=== PATIENT | male | born 1935 | race Caucasian/White ===

== ENCOUNTER 2017-01-10 13:44 | Inpatient (IN) | payer BC, OTHER ==
[~2017-01-10] VITALS: Ht 177.8 cm; Wt 93.6 kg
[~2017-01-10 13:44] MED LIST: ATOR-26 PO; CALC500C70 PO; CARB25TA12 PO; CLOP1TAB15 PO; CYAN100048 SL; EZET10TA63 PO; HYDR12.55 PO; LISI40TA PO; METO1TAB69 PO; METO50TA7 PO; POLY335019 PO; SERT50TA PO; ZNTT/150 PO
[2017-01-10 14:38] LABS: HEMATOCRIT 40.9 % (42-52); MEAN CELL VOLUME 95.1 fL (80-100); MEAN CORPUSCULAR HEMOGLOBIN 33.3 pg (25-34); MEAN PLATELET VOLUME 9.3 fL (7.4-10.4); PLATELET COUNT 201 K/uL (130-400); WHITE BLOOD COUNT 24.47 K/uL (4.8-10.8)
[2017-01-10 14:49] LABS: INR 1.2 (0.9-1.1); PARTIAL THROMBOPLASTIN RATIO 0.9
[2017-01-10] MEDS ORDERED: SODIUM CHLORIDE 0.9% 500ML 500 ML IV STA (14:58)
--- NOTE | 2017-01-10 14:59 | EMERGENCY ROOM VISIT NOTE ---
History Report prepared by Meg: Raymundo Smith Under the Supervision of: Dr. Roger Smith M.D. First contact with patient: 14:45 Chief Complaint: VOMITING Stated Complaint: ABDOMINAL PAIN Nursing Triage Summary: Emesis X 1, described as blakc and tarry, ? change in mental status this AM, resolved on arrival, and adominal pain last evening. History of Present Illness The patient is an 81 year old male who presents to the Emergency Room with complaints of resolving abdominal pain that started around 1800 last evening. Per the patient's , the patient was confused earlier this morning but has since gone back to normal. The patient's does not know if the patient passed out. She also notes that that patient vomited around 1200 today upon waking. Currently, the patient says he has the pain but it is not as bad. Before 1800 last evening, he says he was feeling good. Nobody else is sick around him at home. The patient has not had any abdominal surgeries. He has no history of kidney problems. Source of History: patient, spouse/significant other Onset: 1800 last evening Position: abdomen Timing: other (resolving) Associated Symptoms: + vomiting Note: Associated symptoms: Confused earlier today. Review of Systems See HPI for pertinent positives & negatives. A total of 10 systems reviewed and were otherwise negative. Past Medical & Surgical Medical Problems: (1) Asthma (2) Benign Hypertension (3) Brain aneurysm (4) Heart disease (5) HTN (hypertension) (6) Hypertension Nos (7) Migraine (8) Pneumonia of both lower lobes (9) Pure Hypercholesterolem (10) TIA (transient ischemic attack) (11) TIA (transient ischemic attack) (12) Urinary Frequency Surgical Problems: (1) H/O heart artery stent Family History Diabetes mellitus Heart disease Hypertension Social History Smoking Status: Never Smoker Marital Status: Housing Status: lives with significant other Occupation Status: retired Current/Historical Medications Scheduled Atorvastatin (Lipitor), 80 MG PO QPM Calcium/Vitamin D (Os-Bry 500 Plus D), 1 TAB PO DAILY AT 1200 Carbidopa/Levodopa (Sinemet 25MG/100MG), 2 TAB PO AC Clopidogrel (Plavix), 75 MG PO HS Cyanocobalamin (B12), 1,000 MCG PO DAILY Ezetimibe (Zetia), 10 MG PO QAM Hydrochlorothiazide (Hydrochlorothiazide), 12.5 MG PO QAM Lisinopril (Zestril), 40 MG PO QAM Metoprolol Succ (Toprol Xl) (Toprol-Xl ), 100 MG PO QAM Metoprolol Succ (Toprol Xl) (Toprol-Xl), 50 MG PO QPM Polyethylene Glycol 3350 (Miralax), 17 GM PO QPM Ranitidine (Zantac), 150 MG PO BID Sertraline (Zoloft), 50 MG PO QAM Allergies Coded Allergies: Tuberculin Tests (Verified Allergy, Unknown, RASH, 01/10/17) Physical Exam Vital Signs Date Time Temp Pulse Resp B/P Pulse Ox O2 Delivery O2 Flow Rate FiO2 01/10/17 18:40 36.9 91 16 112/71 90 Room Air 01/10/17 18:16 74 16 118/68 98 01/10/17 17:59 98 Room Air 01/10/17 17:19 64 16 115/62 98 01/10/17 14:25 97 01/10/17 13:53 36.8 89 20 115/62 93 Room Air Physical Exam GENERAL: Patient is ill appearing and tired appearing. HEENT: No acute trauma, normocephalic atraumatic, mucous membranes dry, no nasal congestion, no scleral icterus. NECK: No stridor, no adenopathy, no meningismus, trachea is midline. LUNGS: No dyspnea. Clear to auscultation and equal bilaterally. No wheeze, no rhonchi. HEART: Regular rate and rhythm. No murmurs, rubs, gallops appreciated. ABDOMEN: Soft, bowel sounds positive, no masses appreciated, no peritonitis. Mild epigastric tenderness to palpation. BACK: No midline tenderness, no CVA tenderness EXTREMITIES: Normal motion all extremities, no cyanosis, no edema. NEUROLOGIC: Alert and oriented, no acute motor or sensory deficits, no focal weakness, cranial nerves grossly intact. SKIN: No rash, no jaundice, no diaphoresis. Medical Decision & Procedures ER Provider Diagnostic Interpretation: X ray results and stated below per my interpretation and radiologist interpretation. Other radiology results and stated below per my review and radiologist interpretation: HEAD CT NONCONTRAST CT DOSE: 537.48 mGy.cm HISTORY: AMS earlier resolved TECHNIQUE: Multiaxial CT images of the head were performed without the use of intravenous contrast. Comparison: 01/10/2016 Findings: The paranasal sinuses and mastoid air cells are clear. Atrophy and chronic small vessel change. No acute intracranial hemorrhage. No midline shift. No change from the prior study. Impression: Chronic and age-related change. No acute process. Electronically signed by: Gavin Sadler M.D. 01/10/2017 4:06 PM Dictated Date/Time: 01/10/2017 4:05 PM CHEST ONE VIEW PORTABLE CLINICAL HISTORY: AMS, syncope dyspnea COMPARISON STUDY: 01/10/2016 FINDINGS: Small basilar infiltrates bilaterally. Lungs otherwise appear clear. No evidence for cardiac enlargement. IMPRESSION: Small basilar parenchymal infiltrates bilaterally Electronically signed by: Gavin Sadler M.D. 01/10/2017 3:18 PM Dictated Date/Time: 01/10/2017 3:17 PM ABDOMEN AND PELVIS CT WITH IV CONTRAST CT DOSE: 617.86 mGy.cm HISTORY: Pain EPigastric pain with elevated WBC TECHNIQUE: Multiaxial CT images of the abdomen and pelvis were performed following the use of intravenous contrast. COMPARISON STUDY: None. FINDINGS: Parenchymal infiltrate anterior aspect right middle lobe. Mild bibasilar atelectatic change. Calcified granuloma right base. Several hepatic cysts largest of which measures 5.8 cm superior right hepatic lobe. Multiple gallstones within the gallbladder lumen. Moderate gallbladder wall edema raising the possibility of cholecystitis. Several renal cysts bilaterally. No evidence renal hydronephrosis. Bowel pattern is nonobstructive. Atherosclerotic change and ectasia of the abdominal aorta and iliac vasculature. Mild rectal fecal impaction. Nonobstructive bowel pattern. Several scattered colonic diverticuli with no evidence for diverticulitis. IMPRESSION: 1. Gallstones within the gallbladder lumen. 2. Moderate gallbladder wall edema raising the possibility of acute cholecystitis. 3. Multiple hepatic as well as renal cysts. 4. Nonobstructive bowel pattern. 5. Small parenchymal infiltrate right base with superimposed bibasilar dependent atelectasis Electronically signed by: Gavin Sadler M.D. 01/10/2017 4:13 PM Dictated Date/Time: 01/10/2017 4:08 PM Laboratory Results 01/10/17 14:20 01/10/17 14:20 Test 01/10/17 00:00 01/10/17 14:20 Urine Color YELLOW Urine Appearance CLOUDY (CLEAR) Urine pH 6.0 (4.5-7.5) Urine Specific [place] 1.029 (1.000-1.030) Urine Protein 1+ (NEG) Urine Glucose (UA) NEG (NEG) Urine Ketones NEG (NEG) Urine Occult Blood NEG (NEG) Urine Nitrite NEG (NEG) Urine Bilirubin NEG (NEG) Urine Urobilinogen NEG (NEG) Urine Leukocyte Esterase TRACE (NEG) Urine WBC (Auto) 1-5 /hpf (0-5) Urine RBC (Auto) 0-4 /hpf (0-4) Urine Hyaline Casts (Auto) 5-10 /lpf (0-5) Urine Epithelial Cells (Auto) >30 /lpf (0-5) Urine Bacteria (Auto) NEG (NEG) Urine Renal Epithelial Cells /lpf (0-5) Urine Mucus PRESENT (NONE PRSENT) Red Blood Count 4.30 M/uL (4.7-6.1) Mean Corpuscular Volume 95.1 fL (80-100) Mean Corpuscular Hemoglobin 33.3 pg (25-34) Mean Corpuscular Hemoglobin Concent 35.0 g/dl (32-36) RDW Standard Deviation 41.7 fL (36.4-46.3) RDW Coefficient of Variation 12.1 % (11.5-14.5) Mean Platelet Volume 9.3 fL (7.4-10.4) Prothrombin Time 13.0 SECONDS (9.0-12.0) Prothromb Time International Ratio 1.2 (0.9-1.1) Activated Partial Thromboplast Time 24.2 SECONDS (21.0-31.0) Partial Thromboplastin Ratio 0.9 Anion Gap 11.0 mmol/L (3-11) Est Creatinine Clear Calc Drug Dose 45.1 ml/min Estimated GFR () 50.2 Estimated GFR (Non- 43.3 BUN/Creatinine Ratio 17.1 (10-20) Calcium Level 8.5 mg/dl (8.5-10.1) Total Bilirubin 2.2 mg/dl (0.2-1) Aspartate Amino Transf (AST/SGOT) 15 U/L (15-37) Alanine Aminotransferase (ALT/SGPT) 22 U/L (12-78) Alkaline Phosphatase 51 U/L (45-117) Troponin I 0.021 ng/ml (0-0.045) Total Protein 6.3 gm/dl (6.4-8.2) Albumin 3.3 gm/dl (3.4-5.0) Globulin 3.0 gm/dl (2.5-4.0) Albumin/Globulin Ratio 1.1 (0.9-2) Laboratory results as reviewed by me. Medications Administered Medications (Trade) Dose Ordered Sig/Jared Route Start Time Stop Time Status Last Admin Dose Admin Sodium Chloride (Nss 500ml) 500 ml @ 999 mls/hr Q31M STAT IV 01/10/17 14:58 01/10/17 15:28 DC 01/10/17 15:06 999 MLS/HR Cefoxitin Sodium (Mefoxin IV) 2,000 mg NOW STAT IV 01/10/17 16:13 01/10/17 16:14 DC 01/10/17 16:39 2,000 MG Morphine Sulfate (MoRPHine SULFATE INJ) 4 mg STK-MED ONCE .ROUTE 01/10/17 17:58 01/10/17 18:00 DC 01/10/17 18:03 4 MG ED Course 1453: The patient was evaluated in room C9. A complete history and physical exam was performed. 1458: Ordered NSS 500 ml @ 999 mls/hr IV. 1613: Ordered Mefoxin IV 2000 mg IV. 1618: I reevaluated the patient and she is feeling okay. The patient verbally expressed understanding and agreement of the treatment plan. The patient will be evaluated for further treatment. 1630: I discussed the patient with Dr. Jarret FERRER hospitalist - he will evaluate the patient for further treatment. Medical Decision Differential: Cholecystitis, Gallbladder disfunction, Hepatic Disfunction, Gastritis/PUD, Pancreatitis, ACS, Aortic Pathology, amongst other pathologies entertained. 81 yr old male with epigastric pain over last 12-24 hours and minimal sleep last night who had somewhat altered mental status earlier which has resolved. No neuro deficits and CT Head is negative. WBC elevated as is Bili in setting of CT findings concerning for acute cholecystitis. Given Mefoxin, gen surg aware and will bring in to medicine service for further monitoring. Blood pressure stable throughout ED stay and patient with normal mentation. Consults Time Called: 1620 Consulting Physician: Dr. Jarret FERRER hospitalist Returned Call: 1630 I discussed the patient with Dr. Jarret FERRER hospitalist - he will evaluate the patient for further treatment. Impression Primary Impression: Acute cholecystitis Additional Impressions: Altered mental status Leukocytosis Scribe Attestation The scribe's documentation has been prepared under my direction and personally reviewed by me in its entirety. I confirm that the note above accurately reflects all work, treatment, procedures, and medical decision making performed by me. Departure Information Dispostion Being Evaluated By Hospitalist Referrals Oswaldo Ware M.D. (PCP) Patient Instructions My [facility] Problem Qualifiers Additional Impressions: Altered mental status Altered mental status type: transient alteration of awareness Qualified Codes : R40.4 - Transient alteration of awareness Leukocytosis Leukocytosis type: unspecified Qualified Codes: D72.829 - Elevated white blood cell count, unspecified
[2017-01-10 15:00] LABS: BUN/CREATININE RATIO 17.1 (10-20); CALCIUM 8.5 mg/dl (8.5-10.1); CREATININE 1.5 mg/dl (0.60-1.40); POTASSIUM 3.5 mmol/L (3.5-5.1)
[2017-01-10 15:02] LABS: ALB/GLOB RATIO 1.1 (0.9-2)
[2017-01-10] MEDS ORDERED: CYAN100073 PO (15:13)
[2017-01-10] MEDS ORDERED: OPTIRAY 320 IV PRN (15:15)
--- NOTE | 2017-01-10 15:19 | DIAGNOSTIC IMAGING REPORT ---
CHEST ONE VIEW PORTABLE CLINICAL HISTORY: AMS, syncope dyspnea COMPARISON STUDY: 01/10/2016 FINDINGS: Small basilar infiltrates bilaterally. Lungs otherwise appear clear. No evidence for cardiac enlargement. IMPRESSION: Small basilar parenchymal infiltrates bilaterally Electronically signed by: Gavin Sadler M.D. 01/10/2017 3:18 PM Dictated Date/Time: 01/10/2017 3:17 PM
--- NOTE | 2017-01-10 16:08 | DIAGNOSTIC IMAGING REPORT ---
HEAD CT NONCONTRAST CT DOSE: 537.48 mGy.cm HISTORY: AMS earlier resolved TECHNIQUE: Multiaxial CT images of the head were performed without the use of intravenous contrast. Comparison: 01/10/2016 Findings: The paranasal sinuses and mastoid air cells are clear. Atrophy and chronic small vessel change. No acute intracranial hemorrhage. No midline shift. No change from the prior study. Impression: Chronic and age-related change. No acute process. Electronically signed by: Gavin Sadler M.D. 01/10/2017 4:06 PM Dictated Date/Time: 01/10/2017 4:05 PM
[2017-01-10] MEDS ORDERED: CEFOXITIN SOD 2 GM VIAL IV STA (16:13)
--- NOTE | 2017-01-10 16:14 | DIAGNOSTIC IMAGING REPORT ---
ABDOMEN AND PELVIS CT WITH IV CONTRAST CT DOSE: 617.86 mGy.cm HISTORY: Pain EPigastric pain with elevated WBC TECHNIQUE: Multiaxial CT images of the abdomen and pelvis were performed following the use of intravenous contrast. COMPARISON STUDY: None. FINDINGS: Parenchymal infiltrate anterior aspect right middle lobe. Mild bibasilar atelectatic change. Calcified granuloma right base. Several hepatic cysts largest of which measures 5.8 cm superior right hepatic lobe. Multiple gallstones within the gallbladder lumen. Moderate gallbladder wall edema raising the possibility of cholecystitis. Several renal cysts bilaterally. No evidence renal hydronephrosis. Bowel pattern is nonobstructive. Atherosclerotic change and ectasia of the abdominal aorta and iliac vasculature. Mild rectal fecal impaction. Nonobstructive bowel pattern. Several scattered colonic diverticuli with no evidence for diverticulitis. IMPRESSION: 1. Gallstones within the gallbladder lumen. 2. Moderate gallbladder wall edema raising the possibility of acute cholecystitis. 3. Multiple hepatic as well as renal cysts. 4. Nonobstructive bowel pattern. 5. Small parenchymal infiltrate right base with superimposed bibasilar dependent atelectasis Electronically signed by: Gavin Sadler M.D. 01/10/2017 4:13 PM Dictated Date/Time: 01/10/2017 4:08 PM
[2017-01-10 16:54] LABS: URINE APPEARANCE CLOUDY (CLEAR); URINE BILIRUBIN NEG (NEG); URINE COLOR YELLOW; URINE EPITHELIAL CELL AUTO >30 /lpf (0-5); URINE NITRITE NEG (NEG); URINE SPECIFIC GRAVITY 1.029 (1.000-1.030); UROBILINOGEN NEG (NEG); ZZUR CULT IF INDIC CLEAN CATCH NO
[2017-01-10 16:57] LABS: MANUAL MICROSCOPIC REQUIRED? NO; REVIEW REQ? YES
[2017-01-10] MEDS ORDERED: PROMETHAZINE HCL INJ 12.5 MG in SODIUM CHLORIDE 0.9% 50ML 50 ML IV PRN (17:15)
[2017-01-10] MEDS ORDERED: ZOLPIDEM TARTRATE 5 MG TAB PO PRN (17:15)
[2017-01-10] MEDS ORDERED: DiphenhydrAMINE HCL 50 MG/ML VIAL IV PRN (17:15)
[2017-01-10] MEDS ORDERED: LORAZEPAM 2 MG/ML 1 ML VIAL IV PRN (17:15)
[2017-01-10] MEDS ORDERED: MoRPHine SULFATE 4 MG/ML 1 ML CARP\\VIAL IV PRN (17:15)
[2017-01-10] MEDS ORDERED: ONDANSETRON INJ 2 MG/ML 2 ML VIAL IV PRN (17:15)
[2017-01-10 17:20] LABS: URINE MUCUS PRESENT (NONE PRSENT)
[2017-01-10] MEDS ORDERED: MoRPHine SULFATE 4 MG/ML 1 ML CARP\\VIAL ONE (17:58)
[2017-01-10 17:59] VITALS: O2SAT 98; Ht 177.8 cm; Wt 93.6 kg
[2017-01-10 18:40] VITALS: BP 112/71; PULSE 91; TEMP 36.9; O2SAT 90
[2017-01-10 19:06] VITALS: O2SAT 96
--- NOTE | 2017-01-10 19:52 | History and Physical ---
History & Physical Date & Time of Service: Jan 10, 2017 at 19:35 Chief Complaint: Acute Cholecystitis Pneumonia Of Both Lower Lobes Primary Care Physician: Oswaldo Ware M.D. History of Present Illness Source: patient, spouse The patient is an 81-year-old male who presents emergency department with abdominal pain that began around 6:00 last evening. His will bring in the emergency department last night, however, he refused to go. He became confused this morning and his insisted on bringing him into the hospital and he agreed and came in for assessment today. He's also had generalized fatigue and weakness and some intermittent nausea but no vomiting Past Medical/Surgical History Medical Problems: (1) Asthma Status: Chronic (2) Benign Hypertension Status: Chronic (3) Brain aneurysm Status: Resolved (4) Heart disease Status: Chronic (5) HTN (hypertension) Status: Chronic (6) Hypertension Nos Status: Chronic (7) Migraine Status: Chronic (8) Pure Hypercholesterolem Status: Chronic (9) TIA (transient ischemic attack) Status: Resolved (10) Urinary Frequency Status: Resolved Surgical Problems: (1) H/O heart artery stent Status: Resolved Family History Diabetes mellitus Heart disease Hypertension Social History Smoking Status: Never Smoker Smokeless Tobacco Use: No Alcohol Use: none Drug Use: none Marital Status: Housing status: lives with family Occupational Status: retired Multi-Drug Resistant Organisms History of MDRO: No Allergies Coded Allergies: Tuberculin Tests (Verified Allergy, Unknown, RASH, 01/10/17) Home Medications Scheduled Atorvastatin (Lipitor), 80 MG PO QPM Calcium/Vitamin D (Os-Bry 500 Plus D), 1 TAB PO DAILY AT 1200 Carbidopa/Levodopa (Sinemet 25MG/100MG), 2 TAB PO AC Clopidogrel (Plavix), 75 MG PO HS Cyanocobalamin (B12), 1,000 MCG PO DAILY Ezetimibe (Zetia), 10 MG PO QAM Hydrochlorothiazide (Hydrochlorothiazide), 12.5 MG PO QAM Lisinopril (Zestril), 40 MG PO QAM Metoprolol Succ (Toprol Xl) (Toprol-Xl ), 100 MG PO QAM Metoprolol Succ (Toprol Xl) (Toprol-Xl), 50 MG PO QPM Polyethylene Glycol 3350 (Miralax), 17 GM PO QPM Ranitidine (Zantac), 150 MG PO BID Sertraline (Zoloft), 50 MG PO QAM Review of Systems The patient denies chest pain, palpitations, shortness of breath, cough, lower extremity swelling, vision change, hearing change, sore throat, fevers, chills, sweats, weight change, fatigue, vomiting, blood in urine or stool, dysuria, urinary frequency or urgency, lightheadedness, dizziness, headache, memory loss , rash, abnormal bruising or bleeding, imbalance, focal weakness, numbness or tingling in arms or legs, arthralgias or myalgias, back or neck pain, night sweats, or allergy symptoms. The review of systems is otherwise negative other than for that already noted above, and at least 10 systems have been reviewed. Physical Exam Vital Signs Date Time Temp Pulse Resp B/P Pulse Ox O2 Delivery O2 Flow Rate FiO2 01/10/17 19:06 96 Nasal Cannula 2.0 01/10/17 18:40 36.9 91 16 112/71 90 Room Air 01/10/17 18:16 74 16 118/68 98 01/10/17 17:59 98 Room Air 01/10/17 17:19 64 16 115/62 98 01/10/17 14:25 97 01/10/17 13:53 36.8 89 20 115/62 93 Room Air The patient is awake, well-developed and adequately nourished, alert and oriented 3, normocephalic and atraumatic, lying in bed and in no acute distress. HEENT--PERRL, EOMI, mucous membranes and oropharynx dry. Neck--supple, no JVD or bruits, thyroid normal, trachea midline, no adenopathy. Heart--normal S1 and S2, no extra beats, no murmurs, rubs or gallops. Lungs--decreased breath sounds at bases bilaterally. No respiratory distress, no accessory muscle use. Abdomen--normal bowel sounds and soft, tender right upper quadrant and epigastric area, nondistended, no hernias or masses, no organomegaly. Extremities--no cyanosis, clubbing or edema. There are good distal pulses b/l. Dermatologic--normal skin turgor, normal color, warm and dry, no abnormal lymph nodes, no rash. Neurologic--cranial nerves II through XII grossly intact, motor and sensory examination normal. Rheumatologic--normal range of motion, nontender, muscles and joints. Psychiatric--normal affect. Diagnostics Laboratory Results Results Past 24 Hours Test 01/10/17 00:00 01/10/17 14:20 Range/Units Urine Color YELLOW Urine Appearance CLOUDY CLEAR Urine pH 6.0 4.5-7.5 Urine Specific Catron 1.029 1.000-1.030 Urine Protein 1+ NEG Urine Glucose (UA) NEG NEG Urine Ketones NEG NEG Urine Occult Blood NEG NEG Urine Nitrite NEG NEG Urine Bilirubin NEG NEG Urine Urobilinogen NEG NEG Urine Leukocyte Esterase TRACE NEG Urine WBC (Auto) 1-5 0-5 /hpf Urine RBC (Auto) 0-4 0-4 /hpf Urine Hyaline Casts (Auto) 5-10 0-5 /lpf Urine Epithelial Cells (Auto) >30 0-5 /lpf Urine Bacteria (Auto) NEG NEG Urine Renal Epithelial Cells 0-5 /lpf Urine Mucus PRESENT NONE PRSENT White Blood Count 24.47 4.8-10.8 K/uL Red Blood Count 4.30 4.7-6.1 M/uL Hemoglobin 14.3 14.0-18.0 g/dL Hematocrit 40.9 42-52 % Mean Corpuscular Volume 95.1 80-100 fL Mean Corpuscular Hemoglobin 33.3 25-34 pg Mean Corpuscular Hemoglobin Concent 35.0 32-36 g/dl RDW Standard Deviation 41.7 36.4-46.3 fL RDW Coefficient of Variation 12.1 11.5-14.5 % Platelet Count 201 130-400 K/uL Mean Platelet Volume 9.3 7.4-10.4 fL Prothrombin Time 13.0 9.0-12.0 SECONDS Prothromb Time International Ratio 1.2 0.9-1.1 Activated Partial Thromboplast Time 24.2 21.0-31.0 SECONDS Partial Thromboplastin Ratio 0.9 Sodium Level 141 136-145 mmol/L Potassium Level 3.5 3.5-5.1 mmol/L Chloride Level 103 98-107 mmol/L Carbon Dioxide Level 27 21-32 mmol/L Anion Gap 11.0 3-11 mmol/L Blood Urea Nitrogen 26 7-18 mg/dl Creatinine 1.50 0.60-1.40 mg/dl Est Creatinine Clear Calc Drug Dose 45.1 ml/min Estimated GFR () 50.2 Estimated GFR (Non- 43.3 BUN/Creatinine Ratio 17.1 10-20 Random Glucose 178 70-99 mg/dl Calcium Level 8.5 8.5-10.1 mg/dl Total Bilirubin 2.2 0.2-1 mg/dl Aspartate Amino Transf (AST/SGOT) 15 15-37 U/L Alanine Aminotransferase (ALT/SGPT) 22 12-78 U/L Alkaline Phosphatase 51 45-117 U/L Troponin I 0.021 0-0.045 ng/ml Total Protein 6.3 6.4-8.2 gm/dl Albumin 3.3 3.4-5.0 gm/dl Globulin 3.0 2.5-4.0 gm/dl Albumin/Globulin Ratio 1.1 0.9-2 Diagnostic Radiology Patient Name: ISSAC OBANDO Unit Number: [id number] Dictated: 01/10/171604 Transcribed: 01/10/17 1605 MS Printed Date/Time: [~ rep prt dt]/[~ rep prt tm] [~ rep ct labl] - [~ rep ct ivnm] [facility] [place] [address] Dictated: 01/10/171604 Transcribed: 01/10/17 1605 MS Printed Date/Time: [~ rep prt dt]/[~ rep prt tm] [~ rep ct labl] - [~ rep ct ivnm] HEAD CT NONCONTRAST CT DOSE: 537.48 mGy.cm HISTORY: AMS earlier resolved TECHNIQUE: Multiaxial CT images of the head were performed without the use of intravenous contrast. Comparison: 01/10/2016 Findings: The paranasal sinuses and mastoid air cells are clear. Atrophy and chronic small vessel change. No acute intracranial hemorrhage. No midline shift. No change from the prior study. Impression: Chronic and age-related change. No acute process. Electronically signed by: Gavin Sadler M.D. 01/10/2017 4:06 PM Dictated Date/Time: 01/10/2017 4:05 PM The status of this report is Signed. Draft = Not yet reviewed or approved by Radiologist. Signed = Reviewed and approved by Radiologist. <AttendingPhy></AttendingPhy> <FamilyPhy>Oswaldo Ware M.D.</FamilyPhy> < PrimaryPhy>Oswaldo Ware M.D.</PrimaryPhy> <UnitNumber>[id number]</UnitNumber> < VisitNumber>[id number]</VisitNumber> <PatientName>ISSAC OBANDO</PatientName > <DateOfBirth>1935</DateOfBirth> <Location>[facility]</Location> <ServiceDate> 01/10/17</ServiceDate> <MNE>ESINDI</MNE> <OrderingPhy>Roger Smith M.D.</ OrderingPhy> <OrderingPhyMNE>f rep ord dr cardoso</OrderingPhyMNE> <DictatingPhyMNE> f rep dict dr cardoso</DictatingPhyMNE> <CCListMNE>f rep ct mne</CCListMNE> < AdmittingPhyMNE>f pt admit dr cardoso</AdmittingPhyMNE> <AttendingPhyMNE>f pt attend dr cardoso</AttendingPhyMNE> <ConsultingPhyMNE>f pt consult dr cardoso</ConsultingPhyMNE> <FamilyPhyMNE>f pt fam dr cardoso</FamilyPhyMNE> <OtherPhyMNE>f pt other dr cardoso</OtherPhyMNE> < PrimaryPhyMNE>f pt prim care dr cardoso</PrimaryPhyMNE> <ReferringPhyMNE>f pt referring dr cardoso</ReferringPhyMNE> Patient Name: ISSAC OBANDO Unit Number: [id number] Dictated: 01/10/171516 Transcribed: 01/10/171516 MS Printed Date/Time: [~ rep prt dt]/[~ rep prt tm] [~ rep ct labl] - [~ rep ct ivnm] [facility] [place] [address] Dictated: 01/10/171516 Transcribed: 01/10/171516 MS Printed Date/Time: [~ rep prt dt]/[~ rep prt tm] [~ rep ct labl] - [~ rep ct ivnm] CHEST ONE VIEW PORTABLE CLINICAL HISTORY: AMS, syncope dyspnea COMPARISON STUDY: 01/10/2016 FINDINGS: Small basilar infiltrates bilaterally. Lungs otherwise appear clear. No evidence for cardiac enlargement. IMPRESSION: Small basilar parenchymal infiltrates bilaterally Electronically signed by: Gavin Sadler M.D. 01/10/2017 3:18 PM Dictated Date/Time: 01/10/2017 3:17 PM The status of this report is Signed. Draft = Not yet reviewed or approved by Radiologist. Signed = Reviewed and approved by Radiologist. <AttendingPhy></AttendingPhy> <FamilyPhy>Oswaldo Ware M.D.</FamilyPhy> < PrimaryPhy>Oswaldo Ware M.D.</PrimaryPhy> <UnitNumber>[id number]</UnitNumber> < VisitNumber>[id number]</VisitNumber> <PatientName>ISSAC OBANDO</PatientName > <DateOfBirth>1935</DateOfBirth> <Location>[facility]</Location> <ServiceDate> 01/10/17</ServiceDate> <MNE>ESINDI</MNE> <OrderingPhy>Roger Smith M.D.</ OrderingPhy> <OrderingPhyMNE>f rep ord dr cardoso</OrderingPhyMNE> <DictatingPhyMNE> f rep dict dr cardoso</DictatingPhyMNE> <CCListMNE>f rep ct mne</CCListMNE> < AdmittingPhyMNE>f pt admit dr cardoso</AdmittingPhyMNE> <AttendingPhyMNE>f pt attend dr cardoso</AttendingPhyMNE> <ConsultingPhyMNE>f pt consult dr cardoso</ConsultingPhyMNE> <FamilyPhyMNE>f pt fam dr cardoso</FamilyPhyMNE> <OtherPhyMNE>f pt other dr cardoso</OtherPhyMNE> < PrimaryPhyMNE>f pt prim care dr cardoso</PrimaryPhyMNE> <ReferringPhyMNE>f pt referring dr cardoso</ReferringPhyMNE> Patient Name: ISSAC OBANDO Unit Number: [id number] Dictated: 01/10/17 1608 Transcribed: 01/10/17 1608 MS Printed Date/Time: [~ rep prt dt]/[~ rep prt tm] [~ rep ct labl] - [~ rep ct ivnm] [facility] [place] [address] Dictated: 01/10/171607 Transcribed: 01/10/17 1608 MS Printed Date/Time: [~ rep prt dt]/[~ rep prt tm] [~ rep ct labl] - [~ rep ct ivnm] ABDOMEN AND PELVIS CT WITH IV CONTRAST CT DOSE: 617.86 mGy.cm HISTORY: Pain EPigastric pain with elevated WBC TECHNIQUE: Multiaxial CT images of the abdomen and pelvis were performed following the use of intravenous contrast. COMPARISON STUDY: None. FINDINGS: Parenchymal infiltrate anterior aspect right middle lobe. Mild bibasilar atelectatic change. Calcified granuloma right base. Several hepatic cysts largest of which measures 5.8 cm superior right hepatic lobe. Multiple gallstones within the gallbladder lumen. Moderate gallbladder wall edema raising the possibility of cholecystitis. Several renal cysts bilaterally. No evidence renal hydronephrosis. Bowel pattern is nonobstructive. Atherosclerotic change and ectasia of the abdominal aorta and iliac vasculature. Mild rectal fecal impaction. Nonobstructive bowel pattern. Several scattered colonic diverticuli with no evidence for diverticulitis. IMPRESSION: 1. Gallstones within the gallbladder lumen. 2. Moderate gallbladder wall edema raising the possibility of acute cholecystitis. 3. Multiple hepatic as well as renal cysts. 4. Nonobstructive bowel pattern. 5. Small parenchymal infiltrate right base with superimposed bibasilar dependent atelectasis Electronically signed by: Gavin Sadler M.D. 01/10/2017 4:13 PM Dictated Date/Time: 01/10/2017 4:08 PM The status of this report is Signed. Draft = Not yet reviewed or approved by Radiologist. Signed = Reviewed and approved by Radiologist. <AttendingPhy></AttendingPhy> <FamilyPhy>Oswaldo Ware M.D.</FamilyPhy> < PrimaryPhy>Oswaldo Ware M.D.</PrimaryPhy> <UnitNumber>[id number]</UnitNumber> < VisitNumber>[id number]</VisitNumber> <PatientName>ISSAC OBANDO</PatientName > <DateOfBirth>1935</DateOfBirth> <Location>[facility]</Location> <ServiceDate> 01/10/17</ServiceDate> <MNE>ESINDI</MNE> <OrderingPhy>Roger Smith M.D.</ OrderingPhy> <OrderingPhyMNE>f rep ord dr cardoso</OrderingPhyMNE> <DictatingPhyMNE> f rep dict dr cardoso</DictatingPhyMNE> <CCListMNE>f rep ct janae</CCListMNE> < AdmittingPhyMNE>f pt admit dr cardoso</AdmittingPhyMNE> <AttendingPhyMNE>f pt attend dr cardoso</AttendingPhyMNE> <ConsultingPhyMNE>f pt consult dr cardoso</ConsultingPhyMNE> <FamilyPhyMNE>f pt fam dr cardoso</FamilyPhyMNE> <OtherPhyMNE>f pt other dr cardoso</OtherPhyMNE> < PrimaryPhyMNE>f pt prim care dr cardoso</PrimaryPhyMNE> <ReferringPhyMNE>f pt referring dr cardoso</ReferringPhyMNE> EKG EKG shows normal sinus rhythm at 87 bpm, left anterior fascicular block, first- degree heart block, with no acute ST-T changes Impression Assessment and Plan Acute cholecystitis--the patient be admitted to the medical surgical floor and nothing by mouth status. Who placed on normal saline with potassium chloride 20 mEq 100 ML's per hour, Zosyn 3.375 mg IV every 6 hours, Protonix 40 mg IV daily, morphine sulfate 2-4 mg IV every 2 hours when necessary. We'll hold Plavix. Consult surgery. Bibasilar pneumonia--likely secondary to decreased respiratory effort due to abdominal pain. We'll place on Xopenex and Atrovent nebulizers to use every 6 hours awake and every 2 hours when necessary. Continues Zosyn as noted above, and add levofloxacin 500 mg IV every 24 hours. CAD/hypertension/history of coronary artery stent/TIA--continue metoprolol succinate 1 mg by mouth every morning and 50 mg by mouth every evening. We will hold Plavix as noted above for potential surgery. Will hold Hydrocort thiazide 12.5 mg every morning and lisinopril 40 mg every morning. Hypercholesterolemia--while nothing by mouth, hold atorvastatin 80 mg by mouth every afternoon and Zetia 10 mg by mouth every morning. Parkinsonism--continue carbidopa levodopa 25/100, 2 tablets by mouth before meals. GERD--hold ranitidine 50 mg by mouth twice a day, and place on Protonix 40 mg IV daily. Depression/anxiety hold sertraline 50 mg by mouth every morning, have available lorazepam 0.5 mg IV every 6 hours when necessary. Vitamin B12 deficiency--hold supplement 1000 g by mouth daily Level of Care Med/Surg Advanced Directives Existing Advance Directive: No Existing Living Will: Yes Existing Power of Poolroom/Poolhall Manager: Yes Resuscitation Status FULL RESUSCITATION VTE Prophylaxis VTE Risk Assessment Done? Y/N: Yes Risk Level: Moderate Given or contraindicated: SCD's
[2017-01-10 20:00] VITALS: O2SAT 96
[2017-01-10] MEDS ORDERED: IPRATROPIUM BROMIDE NEB SOLN 0.02% 2.5 ML VIAL INH PRN (20:30)
[2017-01-10] MEDS ORDERED: LEVALBUTEROL 1.25MG/0.5ML NEB INH PRN (20:30)
[2017-01-10] MEDS ORDERED: PIPERACILL/TAZOBAC CONSULT ACTIVE PRN (20:30)
[2017-01-10] MEDS ORDERED: LORAZEPAM INJ 0.5 MG in SYRINGE 0.75 ML IV PRN (20:30)
[2017-01-10] MEDS ORDERED: LEVALBUTEROL/IPRATROPIUM NEB INH SCH (21:00)
[2017-01-10] MEDS ORDERED: PIPERACILL/TAZOBAC IV 3.375 GM in DEXTROSE 5% 100ML 100 ML IV SCH (21:00)
[2017-01-10] MEDS ORDERED: LEVOFLOXACIN / D5W 500 MG in PREMIXED IN D5W 100 ML IV ONE (21:00)
[2017-01-10] MEDS: METOPROLOL SUCC 50MG EXT REL TAB PO SCH (21:07)
[2017-01-10] MEDS: SODIUM CHLORIDE 0.9% 1000ML 1,000 ML IV SCH (21:09)
[2017-01-10] MEDS ORDERED: PIPERACILL/TAZOBAC IV 3.375 GM in DEXTROSE 5% 100ML IV ONE (22:00)
[2017-01-10] MEDS: IPRATROPIUM BROMIDE NEB SOLN 0.02% 2.5 ML VIAL INH SCH (22:06)
[2017-01-10] MEDS: LEVALBUTEROL 1.25MG/0.5ML NEB INH SCH (22:07)
[2017-01-10 23:00] VITALS: BP 104/65; PULSE 81; TEMP 36.9; O2SAT 94
[2017-01-10] MEDS: ACETAMINOPHEN 325 MG TAB PO PRN (23:38)
[2017-01-11] VITALS (11 sets, daily range): BP systolic 90–134; BP diastolic 57–74; PULSE 70–118; TEMP 36.9; O2SAT 93–96
[2017-01-11] MEDS: LEVALBUTEROL 1.25MG/0.5ML NEB INH SCH ×4 (01:59→20:56)
[2017-01-11] MEDS: IPRATROPIUM BROMIDE NEB SOLN 0.02% 2.5 ML VIAL INH SCH ×4 (01:59→20:56)
[2017-01-11] MEDS: PIPERACILL/TAZOBAC IV 3.375 GM in DEXTROSE 5% 100ML IV SCH ×3 (03:56→19:45)
[2017-01-11] MEDS: ACETAMINOPHEN 325 MG TAB PO PRN ×2 (03:57→09:10)
[2017-01-11 07:24] LABS: BASO ABS # 0.01 K/uL (0-0.2); COMPLETE YES; HEMATOCRIT 39.1 % (42-52); IG% 0.5 %; LYMPH % 4.6 %; MEAN CELL VOLUME 95.8 fL (80-100); MEAN CORPUSCULAR HEMOGLOBIN 32.1 pg (25-34); MEAN CORPUSCULAR HGB CONC 33.5 g/dl (32-36); MEAN PLATELET VOLUME 9.3 fL (7.4-10.4); MONO % 8.7 %; NEUT % 86.2 %; PLATELET COUNT 179 K/uL (130-400); RED BLOOD COUNT 4.08 M/uL (4.7-6.1); WHITE BLOOD COUNT 21.71 K/uL (4.8-10.8)
--- NOTE | 2017-01-11 07:43 | Hospitalist Progress Note ---
Hospitalist Progress Note Date of Service Jan 11, 2017. (Francheska Guzman PA-C) Subjective Pt evaluation today including: conversation w/ patient, conversation w/ family , physical exam, chart review, lab review, review of studies, review of inpatient medication list Pain: Severe PO Intake: NPO Voiding: no voiding problems The patient was seen and examined this morning. Pt reports pain is severe, RUQ, especially worse when he is breathing. Was just given a dose of tylenol for analgesia. The patient was seen with his and daughter in the room. Last time eating was on Wednesday evening. Plavix last taken Sat morning. (Francheska Guzman PA-C) Objective Vital Signs Date Time Temp Pulse Resp B/P Pulse Ox O2 Delivery O2 Flow Rate FiO2 01/11/17 06:47 36.9 86 17 117/72 94 Nasal Cannula 2.0 01/11/17 01:59 81 16 95 Nasal Cannula 2.0 01/10/17 23:30 Nasal Cannula 2.0 01/10/17 23:00 36.9 81 14 104/65 94 Nasal Cannula 2.0 01/10/17 20:00 96 Nasal Cannula 2.0 01/10/17 19:06 96 Nasal Cannula 2.0 01/10/17 18:40 36.9 91 16 112/71 90 Room Air 01/10/17 18:16 74 16 118/68 98 01/10/17 17:59 98 Room Air 01/10/17 17:19 64 16 115/62 98 01/10/17 14:25 97 01/10/17 13:53 36.8 89 20 115/62 93 Room Air (Francheska Guzman PA-C) Physical Exam General Appearance: WD/WN, no apparent distress Eyes: PERRL, EOMI ENT: hearing grossly normal, pharynx normal Neck: supple, no JVD Respiratory/Chest: lungs clear, no respiratory distress, no accessory muscle use Cardiovascular: regular rate, rhythm, no murmur Abdomen: + pertinent finding (+ hypoactive bowel sounds throughout, distended, + pain with palpation in the RUQ, nontender to percussion. ) Extremities: non-tender, no pedal edema, no calf tenderness Neurologic/Psychiatric: alert, oriented x 3, + pertinent finding (flat affect, resting tremor at baseline. Strength testing is equal throughout 5/5 in bilateral upper and lower extremities. Pt is able to smile, wrinkle forehead, shrug shoulder without difficulty. No facial droop. ) Skin: normal color, warm/dry (Francheska Guzman, LAILA) Laboratory Results Last 24 Hours Test 01/10/17 14:20 01/11/17 06:46 White Blood Count 24.47 K/uL 21.71 K/uL Red Blood Count 4.30 M/uL 4.08 M/uL Hemoglobin 14.3 g/dL 13.1 g/dL Hematocrit 40.9 % 39.1 % Mean Corpuscular Volume 95.1 fL 95.8 fL Mean Corpuscular Hemoglobin 33.3 pg 32.1 pg Mean Corpuscular Hemoglobin Concent 35.0 g/dl 33.5 g/dl RDW Standard Deviation 41.7 fL 43.6 fL RDW Coefficient of Variation 12.1 % 12.5 % Platelet Count 201 K/uL 179 K/uL Mean Platelet Volume 9.3 fL 9.3 fL Prothrombin Time 13.0 SECONDS Prothromb Time International Ratio 1.2 Activated Partial Thromboplast Time 24.2 SECONDS Partial Thromboplastin Ratio 0.9 Sodium Level 141 mmol/L Potassium Level 3.5 mmol/L Chloride Level 103 mmol/L Carbon Dioxide Level 27 mmol/L Anion Gap 11.0 mmol/L Blood Urea Nitrogen 26 mg/dl Creatinine 1.50 mg/dl Est Creatinine Clear Calc Drug Dose 45.1 ml/min Estimated GFR () 50.2 Estimated GFR (Non- 43.3 BUN/Creatinine Ratio 17.1 Random Glucose 178 mg/dl Calcium Level 8.5 mg/dl Total Bilirubin 2.2 mg/dl Aspartate Amino Transf (AST/SGOT) 15 U/L Alanine Aminotransferase (ALT/SGPT) 22 U/L Alkaline Phosphatase 51 U/L Troponin I 0.021 ng/ml Total Protein 6.3 gm/dl Albumin 3.3 gm/dl Globulin 3.0 gm/dl Albumin/Globulin Ratio 1.1 Neutrophils (%) (Auto) 86.2 % Lymphocytes (%) (Auto) 4.6 % Monocytes (%) (Auto) 8.7 % Eosinophils (%) (Auto) 0.0 % Basophils (%) (Auto) 0.0 % Neutrophils # (Auto) 18.72 K/uL Lymphocytes # (Auto) 1.00 K/uL Monocytes # (Auto) 1.88 K/uL Eosinophils # (Auto) 0.00 K/uL Basophils # (Auto) 0.01 K/uL Immature Granulocyte % (Auto) 0.5 % Immature Granulocyte # (Auto) 0.10 K/uL (Francheska Guzman PA-C) Assessment and Plan Acute cholecystitis - Spoke with Dr. Casillas at bedside, currently no plans to perform surgery as has elevated bili with possible stone, would like plavix to be held for 5 days ideally. Has requested both Cardiology and GI evaluations. - pt NPO except meds currently - will allow chips of ice - Dr. Lechuga consulted for GI eval for ERCP today with elevated bili from 2/2 to 3.0. Possible choledocolithiasis. - NSS with 20 meq K+ at 100mL/hrs - Zosyn 3.375 mg IV every 6 hours, Protonix 40 mg IV daily - Analgesia with morphine sulfate 2-4 mg IV every 2 hours when necessary, hold for SBPs < 90 in the setting of severe pain. - Hold Plavix (Last dose Sat AM) - Gen surgery on board- appreciate recs Bibasilar pneumonia - likely secondary to decreased respiratory effort due to abdominal pain - Cont Xopenex and Atrovent nebulizers to use every 6 hours awake and every 2 hours when necessary. - Continues Zosyn as noted above, and add levofloxacin 500 mg IV every 24 hours. CAD/hypertension/history of coronary artery stent/TIA - Cont metoprolol succinate 100 mg QAM, will continue 50 mg by mouth every evening. Hold for sbps less than 100 and dbp less than 60. - hold Plavix as noted above for potential surgery. - HOLD : HCTZ 12.5 mg every morning and lisinopril 40 mg every morning.- restart as able to Hypercholesterolemia -while nothing by mouth, hold atorvastatin 80 mg by mouth every afternoon and Zetia 10 mg by mouth every morning. Parkinsonism -continue carbidopa levodopa 25/100, 2 tablets by mouth before meals. GERD -hold ranitidine 50 mg by mouth twice a day, and place on Protonix 40 mg IV daily. Depression/anxiety - Restart sertraline 50 mg by mouth every morning, have available lorazepam 0.5 mg IV every 6 hours when necessary. Vitamin B12 deficiency -hold supplement 1000 g by mouth daily DVT ppx: SCDs, CODE STATUS: FULL CODE Disposition: From home, await GI/cards recs, Gen surg plan for surgery later this week (Francheska Guzman, LAILA) PA Physician Supervision Note: I interviewed and examined the patient. Discussed with Migdalia Jamison PAC and agree with findings and plan as documented in the note. Any exceptions or clarifications are listed here: None Pt with acute cholecystitis and persistent pain Cardiology feels need to have more urgent surgery will hold plavix but use aspirin thru surgical period GI medicine feels no need for MRCP or ERCP continue antibiotics and pain control and discuss cholecystectomy as soon as able vs show no fever abd is quiet and pain in RUQ Documented By: Corona Morales (Corona Morales M.D.)
[2017-01-11 08:01] LABS: BUN/CREATININE RATIO 22.4 (10-20); CALCIUM 8.4 mg/dl (8.5-10.1); CREATININE 1.4 mg/dl (0.60-1.40); MAGNESIUM 1.7 mg/dl (1.8-2.4); POTASSIUM 3.6 mmol/L (3.5-5.1)
[2017-01-11] MEDS: CARBIDOPA/LEVODOPA 25/100MG TAB PO SCH ×3 (08:59→17:26)
[2017-01-11] MEDS: METOPROLOL SUCC 50MG EXT REL TAB PO SCH ×2 (09:00→22:21)
[2017-01-11] MEDS: SODIUM CHLORIDE 0.9% 1000ML 1,000 ML IV SCH ×2 (09:12→22:22)
--- NOTE | 2017-01-11 09:45 | Medical Consult ---
Consultation Date of Consultation: Jan 11, 2017. Attending Physician: Merrill Wheat M.D. History of Present Illness 81 y/o male with epigastric to RUQ pain that started Wednesday (2 days) after eating [employer] sandwich. Had N/V Wednesday and continued pain and was admitted thru ED. No previous attacks or fatty food intolerance. No known family history of biliary disease. His pain has minimally improved since admission. 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 Also had cardiac stenting in 2008 but had been taken off Plavix after a year. Past Medical/Surgical History Medical Problems: (1) Asthma (2) Benign Hypertension (3) Brain aneurysm (4) Heart disease (5) HTN (hypertension) (6) Hypertension Nos (7) Migraine (8) Pneumonia of both lower lobes (9) Pure Hypercholesterolem (10) TIA (transient ischemic attack) (11) TIA (transient ischemic attack) (12) Urinary Frequency Surgical Problems: (1) H/O heart artery stent spine surgery [facility] Family History Diabetes mellitus Heart disease Hypertension Social History Smoking Status: Never Smoker Smokeless Tobacco Use: No Alcohol Use: none Drug Use: none Marital Status: Housing Status: lives with significant other Occupation Status: retired Allergies Coded Allergies: Tuberculin Tests (Verified Allergy, Unknown, RASH, 01/10/17) Current Inpatient Medications Current Inpatient Medications Medications (Trade) Dose Ordered Sig/Jared Route Start Time Stop Time Status Last Admin Dose Admin Ioversol (Optiray 320) 125 ml UD PRN IV 01/10/17 15:15 01/14/17 15:14 Carbidopa/Levodopa (Sinemet 25/ 100MG Tab) 2 tab AC PO 01/11/17 08:00 02/10/17 07:59 01/11/17 08:59 2 TAB Metoprolol Succinate (Toprol Xl Tab) 100 mg QAM PO 01/11/17 09:00 02/10/17 08:59 Metoprolol Succinate (Toprol Xl Tab) 50 mg QPM PO 01/10/17 21:00 02/09/17 20:59 01/10/17 21:07 50 MG Acetaminophen (Tylenol Tab) 650 mg Q4H PRN PO 01/10/17 17:15 02/09/17 17:14 01/11/17 09:10 650 MG Diphenhydramine HCl 25 mg 25 mg Q4H PRN IV 01/10/17 17:15 02/09/17 17:14 Promethazine HCl/ Sodium Chloride (Phenergan Inj/ Nss 50ml) 50.5 ml @ 202 mls/hr Q4H PRN IV 01/10/17 17:15 02/09/17 17:14 Zolpidem Tartrate (Ambien Tab) 5 mg HSZ PRN PO 01/10/17 17:15 02/09/17 17:14 Ondansetron HCl (Zofran Inj) 4 mg Q6H PRN IV 01/10/17 17:15 02/09/17 17:14 Morphine Sulfate (MoRPHine SULFATE INJ) 2 mg Q2H PRN IV 01/10/17 17:15 01/24/17 17:14 Morphine Sulfate 4 mg 4 mg Q2H PRN IV 01/10/17 17:15 01/24/17 17:14 Sodium Chloride (Nss 1000ml) 1,000 ml @ 80 mls/hr [id number] IV 01/10/17 20:30 02/09/17 20:29 01/11/17 09:12 80 MLS/HR Hydralazine HCl 10 mg 10 mg Q4H PRN IV. 01/10/17 17:15 02/09/17 17:14 Levofloxacin 250 mg/Prmx 50 ml @ 50 mls/hr DAILY@1100 IV 01/11/17 11:00 01/18/17 10:59 Piperacillin Sod/ Tazobactam Sod/ Dextrose (Zosyn Iv/D5 100ml) 115 ml @ 28.75 mls/ hr Q8H IV 01/11/17 04:00 01/18/17 03:59 01/11/17 03:56 28.75 MLS/HR Piperacillin Sod/ Tazobactam Sod (Consult) 1 ea UD PRN N/A 01/10/17 20:30 02/09/17 20:29 Ipratropium Runnells (Atrovent 0.02% 0.5MG/2.5ML Neb) 0.5 mg Q6R INH 01/10/17 21:00 02/09/17 20:59 01/11/17 08:19 0.5 MG Levalbuterol (Xopenex 1.25MG/ 0.5ML Neb) 1.25 mg Q6R INH 01/10/17 21:00 02/09/17 20:59 01/11/17 08:19 1.25 MG Ipratropium Runnells (Atrovent 0.02% 0.5MG/2.5ML Neb) 0.5 mg Q2H PRN INH 01/10/17 20:30 02/09/17 20:29 Levalbuterol 1.25 mg 1.25 mg Q2H PRN INH 01/10/17 20:30 02/09/17 20:29 Lorazepam/Syringe (Ativan Inj/ Syringe) 1 ml @ 1 mls/min Q4H PRN IV 01/10/17 20:30 02/09/17 20:29 Review of Systems Constitutional: No chills, No fever Respiratory: No cough, No shortness of breath Cardiovascular: No chest pain, No edema Abdomen: + nausea, + pain, + vomiting Physical Exam Date Time Temp Pulse Resp B/P Pulse Ox O2 Delivery O2 Flow Rate FiO2 01/11/17 09:18 96 90/57 01/11/17 08:19 86 16 93 Room Air 01/11/17 06:47 36.9 86 17 117/72 94 Nasal Cannula 2.0 01/11/17 01:59 81 16 95 Nasal Cannula 2.0 01/10/17 23:30 Nasal Cannula 2.0 01/10/17 23:00 36.9 81 14 104/65 94 Nasal Cannula 2.0 01/10/17 20:00 96 Nasal Cannula 2.0 01/10/17 19:06 96 Nasal Cannula 2.0 01/10/17 18:40 36.9 91 16 112/71 90 Room Air 01/10/17 18:16 74 16 118/68 98 01/10/17 17:59 98 Room Air 01/10/17 17:19 64 16 115/62 98 01/10/17 14:25 97 01/10/17 13:53 36.8 89 20 115/62 93 Room Air General Appearance: WD/WN, + mild distress Eyes: sclerae normal ENT: normal ENT inspection Respiratory/Chest: lungs clear Cardiovascular: regular rate, rhythm Abdomen/GI: soft, + tenderness (mild to moderate RUQ) Extremities/Musculoskelatal: no pedal edema Skin: normal color, warm/dry Laboratory Results Last 24 Hours Test 01/10/17 14:20 01/11/17 06:46 White Blood Count 24.47 K/uL 21.71 K/uL Red Blood Count 4.30 M/uL 4.08 M/uL Hemoglobin 14.3 g/dL 13.1 g/dL Hematocrit 40.9 % 39.1 % Mean Corpuscular Volume 95.1 fL 95.8 fL Mean Corpuscular Hemoglobin 33.3 pg 32.1 pg Mean Corpuscular Hemoglobin Concent 35.0 g/dl 33.5 g/dl RDW Standard Deviation 41.7 fL 43.6 fL RDW Coefficient of Variation 12.1 % 12.5 % Platelet Count 201 K/uL 179 K/uL Mean Platelet Volume 9.3 fL 9.3 fL Prothrombin Time 13.0 SECONDS Prothromb Time International Ratio 1.2 Activated Partial Thromboplast Time 24.2 SECONDS Partial Thromboplastin Ratio 0.9 Sodium Level 141 mmol/L 142 mmol/L Potassium Level 3.5 mmol/L 3.6 mmol/L Chloride Level 103 mmol/L 105 mmol/L Carbon Dioxide Level 27 mmol/L 25 mmol/L Anion Gap 11.0 mmol/L 12.0 mmol/L Blood Urea Nitrogen 26 mg/dl 31 mg/dl Creatinine 1.50 mg/dl 1.40 mg/dl Est Creatinine Clear Calc Drug Dose 45.1 ml/min 48.4 ml/min Estimated GFR () 50.2 54.6 Estimated GFR (Non- 43.3 47.1 BUN/Creatinine Ratio 17.1 22.4 Random Glucose 178 mg/dl 143 mg/dl Calcium Level 8.5 mg/dl 8.4 mg/dl Total Bilirubin 2.2 mg/dl 3.0 mg/dl Aspartate Amino Transf (AST/SGOT) 15 U/L 13 U/L Alanine Aminotransferase (ALT/SGPT) 22 U/L 20 U/L Alkaline Phosphatase 51 U/L 47 U/L Troponin I 0.021 ng/ml Total Protein 6.3 gm/dl 6.0 gm/dl Albumin 3.3 gm/dl 2.8 gm/dl Globulin 3.0 gm/dl Albumin/Globulin Ratio 1.1 Neutrophils (%) (Auto) 86.2 % Lymphocytes (%) (Auto) 4.6 % Monocytes (%) (Auto) 8.7 % Eosinophils (%) (Auto) 0.0 % Basophils (%) (Auto) 0.0 % Neutrophils # (Auto) 18.72 K/uL Lymphocytes # (Auto) 1.00 K/uL Monocytes # (Auto) 1.88 K/uL Eosinophils # (Auto) 0.00 K/uL Basophils # (Auto) 0.01 K/uL Immature Granulocyte % (Auto) 0.5 % Immature Granulocyte # (Auto) 0.10 K/uL Magnesium Level 1.7 mg/dl Direct Bilirubin 0.2 mg/dl CT IMPRESSION: 1. Gallstones within the gallbladder lumen. 2. Moderate gallbladder wall edema raising the possibility of acute cholecystitis. 3. Multiple hepatic as well as renal cysts. 4. Nonobstructive bowel pattern. 5. Small parenchymal infiltrate right base with superimposed bibasilar dependent atelectasis Electronically signed by: Gavin Sadler M.D. 01/10/2017 4:13 PM Dictated Date/Time: 01/10/2017 4:08 PM Assessment & Plan cholelithiasis, acute cholelithiasis, possible choledocholithiasis Bili now 3.0 from 2.2, recommend GI consult continue IV abx, eventual lap sergei (possible IOC), preferably later this week after Plavix held will follow, discussed with primary service
[2017-01-11] MEDS: MoRPHine SULFATE 2 MG/ML CARP IV PRN ×2 (10:24→13:04)
[2017-01-11] MEDS ORDERED: LEVOFLOXACIN 250MG / D5W IV SCH (11:00)
[2017-01-11] MEDS ORDERED: HYDROmorphone INJ 0.5 MG/0.5 ML SYR IV PRN (15:30)
[2017-01-11] MEDS: HYDROmorphone INJ 1 MG/ML SYR IV PRN ×2 (15:51→23:36)
--- NOTE | 2017-01-11 15:57 | GASTROINTESTINAL CONSULTATION ---
DATE OF CONSULTATION: 01/11/2017 REASON FOR EVALUATION: Cholecystitis and possible need for ERCP. HISTORY OF PRESENT ILLNESS: The patient is an 81-year-old male who began feeling pain in the right upper quadrant, the night before last the pain got progressively worse and yesterday he vomited once, some dark material. His brought him to the Emergency Room where he was evaluated and underwent a CAT scan of the abdomen which showed multiple calcified gallstones in the gallbladder, concentrated in the neck with some thickening of gallbladder wall and some pericholecystic fluid. The common bile duct was normal caliber, and his alkaline phosphatase is normal. His bilirubin was slightly elevated at 2. ERCP was considered and GI consultation was requested. PAST MEDICAL HISTORY: Remarkable for asthma, hypertension, coronary artery disease, elevated cholesterol, TIA in the past, history of a heart stent. MEDICATIONS: Include Lipitor, Os-Bry, Sinemet, Plavix, vitamin B12, Zetia, hydrochlorothiazide, Zestril, Toprol-XL, MiraLax, Zantac, and Zoloft. ALLERGIES: TUBERCULIN SKIN TEST. FAMILY HISTORY: Positive for diabetes, heart disease and hypertension. SOCIAL HISTORY: The patient is and lives with his family. He is retired, does not smoke, no alcohol. REVIEW OF SYSTEMS: Positive for right upper quadrant pain and difficulty taking a deep breath. Remainder is negative. PHYSICAL EXAMINATION: GENERAL: The patient appears in mild distress. He is afebrile. VITAL SIGNS: Blood pressure is 115/62, pulse is 90. ABDOMEN: Shows decreased breath sounds with some guarding in the right upper quadrant. There is tenderness with percussion in the right upper quadrant with positive Cavazos sign. IMPRESSION: The patient has what appears to be acute cholecystitis and would benefit from a cholecystectomy and the problem is that the patient is on Plavix and has stopped it Wednesday, 2 days ago. It is my understanding that the surgeons are going to try to delay as long as possible before they take out his gallbladder and treat him with antibiotics in the interim. At this point, it is highly unlikely that he has a common duct stone given his normal alkaline phosphatase and normal caliber bile duct and no obvious calcification within the common bile duct, on CT. At this point, I do not think an ERCP would be of benefit and I would recommend that the patient have his gallbladder out with the timing at the discretion of the surgeon.
[2017-01-11] MEDS ORDERED: ASPIRIN 81 MG ECTAB PO STA (17:40)
--- NOTE | 2017-01-11 22:09 | CARDIOLOGY CONSULTATION ---
DATE OF CONSULTATION: 01/11/2017 TIME: 1742 p.m. CONSULTING PHYSICIAN: Dr. Morales. REASON FOR CONSULTATION: History of coronary artery disease with LAD PCI and now holding antiplatelet therapy while awaiting cholecystectomy. HISTORY OF PRESENT ILLNESS: Mr. Jaquez is a pleasant 81-year-old gentleman who is followed by Dr. Justice for his cardiology needs in [place], [place]. His cardiac history is significant for coronary artery disease status post mid and distal LAD stents with a 2.5 x 13 mm Cypher drug-eluting and 2.25 x 12 mm Taxus drug-eluting stent respectively in those areas. He also has a history of hypertension and dyslipidemia. He had a cardiac catheterization in 2008 after having exertional dyspnea and an abnormal nuclear stress. He had LAD PCIs as noted above as well as nonobstructive CAD within a first diagonal, second diagonal, and mid and distal circumflex. He has not had another cardiac catheterization since that time and follows annually with Dr. Justice. Approximately 1 year ago aspirin therapy was discontinued in favor of Plavix due to neurologic issues, notably a TIA. He has been maintained on Plavix therapy since that time. He exercises at least 4 days per week by using a stationary bicycle 5-10 minutes at a time. He also goes on hikes in the [place] and can walk up to 3.5 miles at a time with his . He denies exertional symptoms such as chest pain, shortness of breath, syncope, near syncope, or palpitations. He also denies orthopnea, PND, edema, melena, hematochezia, hematuria. On 01/09/2017, he had acute right upper quadrant pain. On the following day, he had nausea and vomiting x1. He has had intermittent nausea as well. No further vomiting. He denies diarrhea. He presented to the hospital on 01/10/2017 and was diagnosed with acute cholecystitis. He has been evaluated by surgery and GI. Cholecystectomy is being planned after Plavix has been held for 7 days. His last dose of Plavix was on 01/09/2017. He has not been on antiplatelet therapy since that time. REVIEW OF SYSTEMS: As above and continues to have abdominal pain; however, better controlled on medications. Review of systems otherwise negative. PAST MEDICAL HISTORY: 1. CAD status post mid and distal LAD PCI as noted above. 2. Hypertension. 3. Dyslipidemia. 4. History of asthma. 5. Migraine. 6. TIA in 2016. 7. Parkinson's. 8. Sleep apnea, on CPAP at bedtime. HOME MEDICATIONS: Include Plavix 75 mg daily, metoprolol succinate 100 mg in the morning and 50 mg in the evening, lisinopril 40 mg daily, Zetia 10 mg daily, atorvastatin 80 mg daily, HCTZ 12.5 mg daily, carbidopa/levodopa 2 tabs with meals, Zantac 150 mg p.o. b.i.d., Zoloft 50 mg daily. INPATIENT MEDICATIONS: Include Dilaudid p.r.n., metoprolol succinate 100 mg in the morning and 50 mg in the evening, Zosyn IV, normal saline at 80 mL per hour. ALLERGIES: TUBERCULIN TEST. SOCIAL HISTORY: Quit smoking in the past. Rare alcohol. No drugs. . Lives with his . She is present with him at the bedside. [facility] live at [facility]. He has 2 daughters. FAMILY HISTORY: Pertinent for hypertension, heart disease, diabetes. PHYSICAL EXAMINATION: VITAL SIGNS: Temperature 36.9 degrees, heart rate 109 beats per minute, respiration rate 18, blood pressure 134/74 mmHg, oxygen saturation is 95% on 2 liters per nasal cannula. He had 1 episode of hypotension this morning at 90/57, but otherwise has been normotensive. Weight 93.6 kg. GENERAL: No acute distress. He is alert. HEENT: Anicteric sclerae. NECK: No appreciable JVD. No bruits. Normal carotid upstrokes bilaterally. CARDIAC EXAMINATION: PMI was not displaced. There was no ventricular heave. Regular; normal S1, S2. No murmurs, rubs, or gallops were auscultated. LUNGS: Clear to auscultation bilaterally without wheezes, rales or rhonchi. ABDOMEN: Soft, nondistended, tenderness in the right upper quadrant. No palpable mass. Normoactive bowel sounds. EXTREMITIES: No cyanosis or edema. 2+ radial pulses bilaterally. 2+ dorsalis pedis pulses bilaterally. PSYCHIATRIC: Affect appears appropriate. LABORATORY DATA: White blood cell count 21.71, hemoglobin 13.1, platelets 179. Sodium 142, potassium 3.6, BUN 31, creatinine 1.4, magnesium 1.7, total bilirubin 3, albumin 2.8. INR is 1.2. ECG personally reviewed on presentation, demonstrating sinus rhythm with first degree AV block, 87 beats per minute. Cardiac catheterization records reviewed. Outpatient records reviewed. Nuclear stress test 01/24/2016, report reviewed. Negative for ischemia. Ejection fraction 61%. Normal wall motion. Echo report from 01/11/2016 reviewed: Ejection fraction 55-60%. Normal wall motion. Mild left atrial dilation. Patent foramen ovale. Abdominal/pelvic CT 01/10/2017, report reviewed. Gallstones within the gallbladder lumen. Moderate gallbladder wall edema, raising the possibility of acute cholecystitis per radiology. ASSESSMENT AND PLAN: 1. Coronary artery disease status post mid and distal left anterior descending percutaneous coronary intervention in 2008, he has no angina or heart failure symptoms. Antiplatelet therapy is recommended without interruption, even during the perioperative period. Since Plavix is being held, given its higher bleeding risk, aspirin 81 mg daily is recommended. Aspirin 81 mg will be ordered at this time. This should be held only if the risk of bleeding is so great that it is worth the risk that outweighs the risk of stent thrombosis and acute myocardial infarction which there would be a risk of while withholding antiplatelet therapy. Continue beta-remy therapy. Continue high intensity statin therapy, when okay from a GI standpoint. 2. Hypertension: Some antihypertensive medications are being held due to normal blood pressures and 1 episode of hypotension. Recommend continuing beta remy throughout the perioperative period however, given his history of coronary artery disease. 3. Preoperative cardiac assessment: He is able to achieve greater than 4 METs without exertional symptoms concerning for angina/ischemic heart disease. Therefore, there is no further testing recommended from a cardiac perspective prior to cholecystectomy. Recommend aspirin 81 mg daily throughout the perioperative period as noted above. Recommend continuing his beta remy therapy throughout the perioperative period as noted above. Plan of care has been discussed with Dr. Morales of the primary service. Pages have been sent out to the surgical team; however, they are unavailable at this time to further discuss this. 4. Disposition: Please call for any further questions or concerns from a cardiac perspective. There is no acute cardiac issue currently. We would be happy to assist in his care as needed. Thank you for allowing me to participate in the care of Mr. Jaquez. [facility]ENTERMichael
[2017-01-12] VITALS (7 sets, daily range): BP systolic 113–154; BP diastolic 70–83; PULSE 79–95; TEMP 36.3–37; O2SAT 92–99
[2017-01-12] MEDS: LEVALBUTEROL 1.25MG/0.5ML NEB INH SCH (02:17)
[2017-01-12] MEDS: IPRATROPIUM BROMIDE NEB SOLN 0.02% 2.5 ML VIAL INH SCH (02:17)
[2017-01-12] MEDS: PIPERACILL/TAZOBAC IV 3.375 GM in DEXTROSE 5% 100ML IV SCH ×3 (03:57→20:15)
[2017-01-12 05:21] LABS: BASO % 0.1 %; BASO ABS # 0.01 K/uL (0-0.2); COMPLETE YES; HEMATOCRIT 37.6 % (42-52); IG% 0.5 %; LYMPH % 4.2 %; LYMPH ABS # 0.71 K/uL (1.2-3.4); MEAN CELL VOLUME 97.4 fL (80-100); MEAN CORPUSCULAR HEMOGLOBIN 32.4 pg (25-34); MEAN CORPUSCULAR HGB CONC 33.2 g/dl (32-36); MEAN PLATELET VOLUME 9.3 fL (7.4-10.4); MONO % 8.9 %; NEUT % 86.3 %; PLATELET COUNT 154 K/uL (130-400); RED BLOOD COUNT 3.86 M/uL (4.7-6.1); WHITE BLOOD COUNT 17.04 K/uL (4.8-10.8)
[2017-01-12] MEDS: HYDROmorphone INJ 1 MG/ML SYR IV PRN ×2 (05:23→15:43)
[2017-01-12 06:14] LABS: BUN/CREATININE RATIO 27.4 (10-20); CALCIUM 8.1 mg/dl (8.5-10.1); CREATININE 1.4 mg/dl (0.60-1.40); MAGNESIUM 1.8 mg/dl (1.8-2.4); POTASSIUM 3.8 mmol/L (3.5-5.1)
--- NOTE | 2017-01-12 07:29 | Hospitalist Progress Note ---
Hospitalist Progress Note Date of Service Jan 12, 2017. (Francheska Guzman PA-C) Subjective Pt evaluation today including: conversation w/ patient, physical exam, chart review, lab review, review of studies, conversation w/ skin care consultant, review of inpatient medication list Pain: Moderate epigastric PO Intake: NPO Voiding: no voiding problems The patient was seen and examined this morning. Pt reports pain is better controlled today than it was yesterday. He is using a pillow if he feels the need to cough. PT denies any sob at rest, +cough without sputum production. Admits to feeling a little lightheaded this morning when went from sit to stand , resolved after returning to sit down. He denies feeling dizzy, weak, fatigued , fevers, chills, sweats. All Other Systems: Reviewed and Negative (other than per HPI) (Francheska Guzman PA-C) Objective Vital Signs Date Time Temp Pulse Resp B/P Pulse Ox O2 Delivery O2 Flow Rate FiO2 01/12/17 06:46 36.3 95 19 113/70 92 CPAP 01/11/17 23:30 94 Nasal Cannula 2.0 01/11/17 22:47 36.9 113 17 117/66 94 Nasal Cannula 2.0 01/11/17 22:20 118 120/72 01/11/17 20:57 110 20 95 Nasal Cannula 2.0 01/11/17 15:30 Nasal Cannula 2.0 01/11/17 14:59 36.9 109 18 134/74 95 Nasal Cannula 2.0 01/11/17 14:21 70 16 96 Nasal Cannula 2.0 01/11/17 13:17 90 101/65 94 Nasal Cannula 01/11/17 09:18 96 90/57 01/11/17 09:12 Room Air 01/11/17 08:19 86 16 93 Room Air (Francheska Guzman PA-C) Physical Exam General Appearance: WD/WN, no apparent distress Eyes: PERRL, EOMI ENT: hearing grossly normal, pharynx normal Neck: supple, no JVD Respiratory/Chest: no respiratory distress, no accessory muscle use, + pertinent finding (diminished breath sounds at bases, wearing 2 L O2 via NC) Cardiovascular: regular rate, rhythm, no murmur Abdomen: no organomegaly, + pertinent finding (+ distension, + pain with palpation in the epigastric region. No rebound tenderness or guarding. ) Extremities: normal range of motion, non-tender, no pedal edema, no calf tenderness Neurologic/Psychiatric: alert, oriented x 3, + pertinent finding (Parkinsonian tremor, fine resting tremor bilateral hands, flat affect, ) Skin: normal color, warm/dry (Francheska Guzman, LAILA) Laboratory Results Last 24 Hours Test 01/12/17 05:13 White Blood Count 17.04 K/uL Red Blood Count 3.86 M/uL Hemoglobin 12.5 g/dL Hematocrit 37.6 % Mean Corpuscular Volume 97.4 fL Mean Corpuscular Hemoglobin 32.4 pg Mean Corpuscular Hemoglobin Concent 33.2 g/dl Platelet Count 154 K/uL Mean Platelet Volume 9.3 fL Neutrophils (%) (Auto) 86.3 % Lymphocytes (%) (Auto) 4.2 % Monocytes (%) (Auto) 8.9 % Eosinophils (%) (Auto) 0.0 % Basophils (%) (Auto) 0.1 % Neutrophils # (Auto) 14.72 K/uL Lymphocytes # (Auto) 0.71 K/uL Monocytes # (Auto) 1.51 K/uL Eosinophils # (Auto) 0.00 K/uL Basophils # (Auto) 0.01 K/uL RDW Standard Deviation 45.2 fL RDW Coefficient of Variation 12.8 % Immature Granulocyte % (Auto) 0.5 % Immature Granulocyte # (Auto) 0.09 K/uL Sodium Level 143 mmol/L Potassium Level 3.8 mmol/L Chloride Level 107 mmol/L Carbon Dioxide Level 27 mmol/L Anion Gap 9.0 mmol/L Blood Urea Nitrogen 38 mg/dl Creatinine 1.40 mg/dl Est Creatinine Clear Calc Drug Dose 48.4 ml/min Estimated GFR () 54.6 Estimated GFR (Non- 47.1 BUN/Creatinine Ratio 27.4 Random Glucose 129 mg/dl Lactic Acid Level 1.5 mmol/L Calcium Level 8.1 mg/dl Magnesium Level 1.8 mg/dl Total Bilirubin 2.6 mg/dl Direct Bilirubin 0.4 mg/dl Aspartate Amino Transf (AST/SGOT) 14 U/L Alanine Aminotransferase (ALT/SGPT) 7 U/L Alkaline Phosphatase 46 U/L Total Protein 6.0 gm/dl Albumin 2.5 gm/dl (Francheska Guzman, LAILA) Assessment and Plan Acute cholecystitis - Spoke with Surgery today - anticipated surg on as this would be 5 days of holding plavix. They're ok with startin ASA 81 mg. - Bili has trended down to 2.6, lactic acid 1.5, WBC trended downward slightly, pain a little better - does not present septic picture so no emergent need for surgery bedside - Cards consulted and rescs hold plavix, continue asa 81 mg and cont beta remy - Allow diet for now, start with clears to see if the pt tolerates - Dr. Lechuga consulted for GI eval for ERCP today with elevated bili from 2/2 to 3.0. He does not feel this is a stone with normal alk phose, normal gallbladder neck caliber. No need for MRCP. - NSS with 20 meq K+ at 80mL/hrs - Zosyn 3.375 mg IV every 6 hours (day 2) - Protonix 40 mg IV daily - Analgesia with morphine sulfate 2-4 mg IV every 2 hours when necessary, hold for SBPs < 90 in the setting of severe pain. - Hold Plavix (Last dose Sat AM) Bibasilar pneumonia - likely secondary to decreased respiratory effort due to abdominal pain - Cont Xopenex and Atrovent nebulizers to use every 6 hours awake and every 2 hours when necessary. - Continues Zosyn as noted above, stopped levaquin as unlikely that this is a gram negative. Continue to follow WBC, trending downward, afebrile, cough improving, no sputum production. Encourage incentive spirometry CAD/hypertension/history of coronary artery stent/TIA - Cont metoprolol succinate 100 mg QAM, will continue 50 mg by mouth every evening. Hold for sbps less than 100 and dbp less than 60. - hold Plavix as noted above for potential surgery. - HOLD : HCTZ 12.5 mg every morning and lisinopril 40 mg every morning.- restart as able to Hypercholesterolemia -while nothing by mouth, hold atorvastatin 80 mg by mouth every afternoon and Zetia 10 mg by mouth every morning. Parkinsonism -continue carbidopa levodopa 25/100, 2 tablets by mouth before meals. GERD -hold ranitidine 50 mg by mouth twice a day, and place on Protonix 40 mg IV daily. Depression/anxiety - Restart sertraline 50 mg by mouth every morning, have available lorazepam 0.5 mg IV every 6 hours when necessary. Vitamin B12 deficiency -hold supplement 1000 g by mouth daily DVT ppx: SCDs, CODE STATUS: FULL CODE Disposition: From home, gen surg plan for surgery later this week, likely (Francheska Guzman, LAILA) PA Physician Supervision Note: I interviewed and examined the patient. Discussed with Francheska Guzman PAC and agree with findings and plan as documented in the note. Any exceptions or clarifications are listed here: None Acute cholecystitis, still with abdominal pain but slightly less, wbc slight improvement surgery will jani for plavix affect to wear off to decrease bleeding vss abd is soft, guarding in RUQ no rebound continue antibiotics, as per cardiology start baby aspirin and proceed to surgery as planned Documented By: Corona Morales (Corona Morales M.D.)
[2017-01-12] MEDS: CARBIDOPA/LEVODOPA 25/100MG TAB PO SCH ×3 (08:25→17:53)
[2017-01-12] MEDS: ASPIRIN 81 MG ECTAB PO SCH (08:29)
[2017-01-12] MEDS: SERTRALINE HCL 50 MG TAB PO SCH (08:29)
[2017-01-12] MEDS: METOPROLOL SUCC 50MG EXT REL TAB PO SCH ×2 (08:29→20:15)
--- NOTE | 2017-01-12 09:28 | Surgery Progress Note ---
Surgery Progress Note Date of Service Jan 12, 2017. Subjective feeling a little better this AM, no nausea Objective Vital Signs: Date Time Temp Pulse Resp B/P Pulse Ox O2 Delivery O2 Flow Rate FiO2 01/12/17 08:45 85 18 97 Room Air 01/12/17 08:27 93 117/76 01/12/17 07:05 CPAP 01/12/17 06:46 36.3 95 19 113/70 92 CPAP 01/11/17 23:30 94 Nasal Cannula 2.0 01/11/17 22:47 36.9 113 17 117/66 94 Nasal Cannula 2.0 01/11/17 22:20 118 120/72 01/11/17 20:57 110 20 95 Nasal Cannula 2.0 01/11/17 15:30 Nasal Cannula 2.0 01/11/17 14:59 36.9 109 18 134/74 95 Nasal Cannula 2.0 01/11/17 14:21 70 16 96 Nasal Cannula 2.0 01/11/17 13:17 90 101/65 94 Nasal Cannula Abdomen: soft, + tenderness (mild RUQ) Laboratory Results: Results Past 24 Hours Test 01/12/17 05:13 Range/Units White Blood Count 17.04 4.8-10.8 K/uL Red Blood Count 3.86 4.7-6.1 M/uL Hemoglobin 12.5 14.0-18.0 g/dL Hematocrit 37.6 42-52 % Mean Corpuscular Volume 97.4 80-100 fL Mean Corpuscular Hemoglobin 32.4 25-34 pg Mean Corpuscular Hemoglobin Concent 33.2 32-36 g/dl Platelet Count 154 130-400 K/uL Mean Platelet Volume 9.3 7.4-10.4 fL Neutrophils (%) (Auto) 86.3 % Lymphocytes (%) (Auto) 4.2 % Monocytes (%) (Auto) 8.9 % Eosinophils (%) (Auto) 0.0 % Basophils (%) (Auto) 0.1 % Neutrophils # (Auto) 14.72 1.4-6.5 K/uL Lymphocytes # (Auto) 0.71 1.2-3.4 K/uL Monocytes # (Auto) 1.51 0.11-0.59 K/uL Eosinophils # (Auto) 0.00 0-0.5 K/uL Basophils # (Auto) 0.01 0-0.2 K/uL RDW Standard Deviation 45.2 36.4-46.3 fL RDW Coefficient of Variation 12.8 11.5-14.5 % Immature Granulocyte % (Auto) 0.5 % Immature Granulocyte # (Auto) 0.09 0.00-0.02 K/uL Sodium Level 143 136-145 mmol/L Potassium Level 3.8 3.5-5.1 mmol/L Chloride Level 107 98-107 mmol/L Carbon Dioxide Level 27 21-32 mmol/L Anion Gap 9.0 3-11 mmol/L Blood Urea Nitrogen 38 7-18 mg/dl Creatinine 1.40 0.60-1.40 mg/dl Est Creatinine Clear Calc Drug Dose 48.4 ml/min Estimated GFR () 54.6 Estimated GFR (Non- 47.1 BUN/Creatinine Ratio 27.4 10-20 Random Glucose 129 70-99 mg/dl Lactic Acid Level 1.5 0.4-2.0 mmol/L Calcium Level 8.1 8.5-10.1 mg/dl Magnesium Level 1.8 1.8-2.4 mg/dl Total Bilirubin 2.6 0.2-1 mg/dl Direct Bilirubin 0.4 0-0.2 mg/dl Aspartate Amino Transf (AST/SGOT) 14 15-37 U/L Alanine Aminotransferase (ALT/SGPT) 7 12-78 U/L Alkaline Phosphatase 46 45-117 U/L Total Protein 6.0 6.4-8.2 gm/dl Albumin 2.5 3.4-5.0 gm/dl Assessment & Plan acute cholecystitis bili down slightly 2.6 WBC also improved prefer he be off Plavix for OR -Wed ok to start ASA will start on clears, can advance as karime
[2017-01-12] MEDS: SODIUM CHLORIDE 0.9% 1000ML 1,000 ML IV SCH ×2 (09:53→22:07)
[2017-01-12] MEDS: IPRATROPIUM BROMIDE HFA INHALER INH SCH ×3 (12:13→23:41)
[2017-01-12] MEDS: LEValbuterol HFA 15GM INHALER INH SCH ×3 (12:14→23:42)
--- NOTE | 2017-01-12 13:27 | GASTROINTESTINAL CONSULTATION ---
DATE OF CONSULTATION: 01/12/2017 GASTROENTEROLOGY INPATIENT PROGRESS NOTE SUBJECTIVE: The patient is doing well, resting comfortably in bed. The patient has evidence of acute cholecyst with an elevated white count. There is also a right middle lobe infiltrate. The patient seems to be tolerating liquid diet well without pain. The patient does report some discomfort with a deep inspiration. He also has occasional expectoration of mucus, although this was nonbloody. The patient's symptoms were acute onset and occurred on Wednesday afternoon. MEDICATIONS: Currently include sertraline, aspirin, hydromorphone, Toprol, and Zosyn. LABORATORY STUDIES: Include a white count of 17, which is down from 24.4, on the . Hemoglobin is slightly trending downward at 12.5 with a normal MCV of 97.4. The patient was found to have a hemoglobin of 14.3 on admission. INR is minimally elevated at 1.2 with a normal PTT. Liver function tests initially had an elevated bilirubin of 2.2 on admission, this went up to 3.0 yesterday and is now 2.6 and mostly indirect fraction (direct 0.4 today). AST, ALT and alkaline phosphatase all in the low normal range. REVIEW OF SYSTEMS: Otherwise noncontributory. ALLERGIES: THE PATIENT IS ALLERGIC TO TB TESTING. MEDICATIONS: Reviewed and are unchanged from admission. The patient also takes Sinemet for Parkinson disease. PHYSICAL EXAMINATION: VITAL SIGNS: The patient is currently afebrile, 36.3; CPAP pulse ox is 92%; blood pressure 113/70, heart rate is 95, respirations 19. HEENT: Sclerae are anicteric. Oral mucosa moist. Conjunctivae are moist. HEART: Normal S1, S2. LUNGS: Clear to auscultation without wheezes or rhonchi. ABDOMEN: Soft, without rebound or guarding. I do not appreciate any focal tenderness with mild palpation; with moderate palpation, there is slight right upper quadrant discomfort, although rebound not appreciated. EXTREMITIES: Without clubbing, cyanosis or edema. RECTAL: Deferred. IMPRESSION AND PLAN: No evidence for biliary obstruction at the present time, white count is resolving, the patient is afebrile and clinically is doing better. The patient reports that surgery for cholecystectomy is anticipated for Wednesday and would continue current course of antibiotics for this as well as for the right middle lobe infiltrate. An intraoperative cholangiogram can also be considered at the time of OR. If you have any questions, please contact our service.
[2017-01-12] MEDS: ACETAMINOPHEN 325 MG TAB PO PRN (14:00)
[2017-01-13] MEDS: PIPERACILL/TAZOBAC IV 3.375 GM in DEXTROSE 5% 100ML IV SCH ×3 (04:01→20:12)
[2017-01-13] MEDS: IPRATROPIUM BROMIDE HFA INHALER INH SCH ×4 (05:28→23:33)
[2017-01-13] MEDS: LEValbuterol HFA 15GM INHALER INH SCH ×4 (05:30→23:33)
[2017-01-13 06:58] LABS: BASO % 0.2 %; BASO ABS # 0.02 K/uL (0-0.2); COMPLETE YES; EOS % 0.1 %; HEMATOCRIT 34.2 % (42-52); IG% 0.5 %; LYMPH % 8.4 %; LYMPH ABS # 1.11 K/uL (1.2-3.4); MEAN CELL VOLUME 95.5 fL (80-100); MEAN CORPUSCULAR HEMOGLOBIN 32.1 pg (25-34); MEAN CORPUSCULAR HGB CONC 33.6 g/dl (32-36); MEAN PLATELET VOLUME 9.5 fL (7.4-10.4); MONO % 8.6 %; NEUT % 82.2 %; PLATELET COUNT 165 K/uL (130-400); RED BLOOD COUNT 3.58 M/uL (4.7-6.1); WHITE BLOOD COUNT 13.14 K/uL (4.8-10.8)
--- NOTE | 2017-01-13 07:14 | Hospitalist Progress Note ---
Hospitalist Progress Note Date of Service Jan 13, 2017. (Francheska Guzman PA-C) Subjective Pt evaluation today including: conversation w/ patient, conversation w/ family , physical exam, chart review, lab review, review of studies, review of inpatient medication list Pain: Moderate, 6/10 PO Intake: Clear liquids Voiding: no voiding problems The patient was seen and examined this morning. Pt reports pain is moderate this morning and a little duller in comparison. He reports his pain as "ugly" today, and cannot further explain this. C/o nausea and has just had zofran administered. His is present at bedside today. Surgery was seen this morning alongside the patient, plan is to go to OR tomorrow for cholecystectomy. Pt denies lightheadedness or dizziness today, no fever, chills , sweats, cp, sob. All Other Systems: Reviewed and Negative (other than per HPI) (Francheska Guzman PA-C) Objective Vital Signs Date Time Temp Pulse Resp B/P Pulse Ox O2 Delivery O2 Flow Rate FiO2 01/12/17 23:41 99 Nasal Cannula 2.0 01/12/17 23:04 37.0 79 17 133/72 98 Nasal Cannula 2.0 01/12/17 20:14 87 154/81 01/12/17 15:30 Nasal Cannula 2.0 01/12/17 15:27 36.5 86 18 151/83 97 Nasal Cannula 2.0 01/12/17 08:45 85 18 97 Room Air 01/12/17 08:27 93 117/76 (Francheska Guzman PA-C) Physical Exam General Appearance: WD/WN, no apparent distress Eyes: PERRL, EOMI ENT: hearing grossly normal, pharynx normal, + pertinent finding (MMM) Neck: supple, no JVD Respiratory/Chest: lungs clear, no respiratory distress, no accessory muscle use Cardiovascular: regular rate, rhythm, no murmur Abdomen: soft, + pertinent finding (+ hypoactive bowel sounds, + pain in the RUQ with light palpation, nondistended (had BM yesterday)) Extremities: non-tender, normal inspection, no pedal edema, no calf tenderness Neurologic/Psychiatric: alert, oriented x 3, + pertinent finding (flat affect, slow speech, parkinsonian tremor at rest) Skin: normal color, warm/dry (Francheska Guzman PA-C) Laboratory Results Last 24 Hours Test 01/13/17 06:20 White Blood Count 13.14 K/uL Red Blood Count 3.58 M/uL Hemoglobin 11.5 g/dL Hematocrit 34.2 % Mean Corpuscular Volume 95.5 fL Mean Corpuscular Hemoglobin 32.1 pg Mean Corpuscular Hemoglobin Concent 33.6 g/dl Platelet Count 165 K/uL Mean Platelet Volume 9.5 fL Neutrophils (%) (Auto) 82.2 % Lymphocytes (%) (Auto) 8.4 % Monocytes (%) (Auto) 8.6 % Eosinophils (%) (Auto) 0.1 % Basophils (%) (Auto) 0.2 % Neutrophils # (Auto) 10.81 K/uL Lymphocytes # (Auto) 1.11 K/uL Monocytes # (Auto) 1.13 K/uL Eosinophils # (Auto) 0.01 K/uL Basophils # (Auto) 0.02 K/uL RDW Standard Deviation 43.5 fL RDW Coefficient of Variation 12.5 % Immature Granulocyte % (Auto) 0.5 % Immature Granulocyte # (Auto) 0.06 K/uL (Francheska Guzman PA-C) Assessment and Plan Acute cholecystitis - Spoke with Surgery today - anticipated surg tomorrow, will be 5 days of holding plavix. They're ok with starting ASA 81 mg. - Will make NPO after 2400 - Bili has trended down to 1.8, WBC trended downward slightly, pain a little better - does not present septic picture so no emergent need for surgery bedside - Cards consulted and rescs hold plavix, continue asa 81 mg and cont beta remy - Gi on board- appreciate recs. no need for MRCP - NSS with 20 meq K+ at 80mL/hrs maintenance not needed as tolerating clears, will continue as pt is nauseous and planned NPO tonight - Zosyn 3.375 mg IV every 6 hours (day 3) - Protonix 40 mg IV daily - Analgesia with morphine sulfate 2-4 mg IV every 2 hours when necessary, hold for SBPs < 90 in the setting of severe pain. - Hold Plavix (Last dose Sat AM) Bibasilar pneumonia - likely secondary to decreased respiratory effort due to abdominal pain - Cont Xopenex and Atrovent nebulizers to use every 6 hours awake and every 2 hours when necessary. - Continues Zosyn as noted above; Continue to follow WBC, trending downward, afebrile, cough improving, minimal sputum production. Encourage incentive spirometry CAD/hypertension/history of coronary artery stent/TIA - Cont metoprolol succinate 100 mg QAM, will continue 50 mg by mouth every evening. Hold for sbps less than 100 and dbp less than 60. - hold Plavix as noted above for potential surgery. - HOLD : HCTZ 12.5 mg every morning and lisinopril 40 mg every morning.- restart as able to Hypercholesterolemia -while nothing by mouth, hold atorvastatin 80 mg by mouth every afternoon and Zetia 10 mg by mouth every morning. - can restart after surgery Parkinsonism -continue carbidopa levodopa 25/100, 2 tablets by mouth before meals. GERD -hold ranitidine 50 mg by mouth twice a day, and place on Protonix 40 mg IV daily. Depression/anxiety - Restart sertraline 50 mg by mouth every morning, have available lorazepam 0.5 mg IV every 6 hours when necessary. Vitamin B12 deficiency -hold supplement 1000 g by mouth daily DVT ppx: SCDs, CODE STATUS: FULL CODE Disposition: From home, gen surg plan for surgery tomorrow, NPO after 2400 (Francheska Guzman, ERNIEC) PA Physician Supervision Note: I interviewed and examined the patient. Discussed with Francheska Guzman PAC and agree with findings and plan as documented in the note. Any exceptions or clarifications are listed here: None pt is stable awaiting cholecystectomy 01/14 vss abdomen is soft but tender in RUQ cholecystitis Zosyn and for cholecystectomy 01/14 (Corona Morales M.D.)
[2017-01-13 07:48] LABS: CALCIUM 8.1 mg/dl (8.5-10.1); CREATININE 1.1 mg/dl (0.60-1.40); MAGNESIUM 1.9 mg/dl (1.8-2.4); POTASSIUM 3.4 mmol/L (3.5-5.1)
[2017-01-13 07:59] VITALS: BP 162/100; PULSE 83; TEMP 36.2; O2SAT 94
[2017-01-13 08:04] VITALS: O2SAT 94
[2017-01-13] MEDS: ASPIRIN 81 MG ECTAB PO SCH (09:23)
[2017-01-13] MEDS: CARBIDOPA/LEVODOPA 25/100MG TAB PO SCH ×3 (09:23→17:46)
[2017-01-13] MEDS: SERTRALINE HCL 50 MG TAB PO SCH (09:24)
[2017-01-13] MEDS: METOPROLOL SUCC 50MG EXT REL TAB PO SCH ×2 (09:24→21:08)
[2017-01-13] MEDS: SODIUM CHLORIDE 0.9% 1000ML 1,000 ML IV SCH (09:27)
--- NOTE | 2017-01-13 10:13 | Surgery Progress Note ---
Surgery Progress Note Date of Service Jan 13, 2017. Subjective still having some pain and nausea but slowly improving. no new complaints. Objective Vital Signs: Date Time Temp Pulse Resp B/P Pulse Ox O2 Delivery O2 Flow Rate FiO2 01/13/17 08:04 94 Nasal Cannula 2.0 01/13/17 07:59 36.2 83 15 162/100 94 Nasal Cannula 2.0 01/13/17 07:50 Nasal Cannula 01/12/17 23:41 99 Nasal Cannula 2.0 01/12/17 23:04 37.0 79 17 133/72 98 Nasal Cannula 2.0 01/12/17 20:14 87 154/81 01/12/17 15:30 Nasal Cannula 2.0 01/12/17 15:27 36.5 86 18 151/83 97 Nasal Cannula 2.0 General Appearance: no apparent distress Head: normocephalic Respiratory/Chest: no respiratory distress, no accessory muscle use Abdomen: soft, + tenderness (RUQ) Extremities: no calf tenderness Laboratory Results: Results Past 24 Hours Test 01/13/17 06:20 Range/Units White Blood Count 13.14 4.8-10.8 K/uL Red Blood Count 3.58 4.7-6.1 M/uL Hemoglobin 11.5 14.0-18.0 g/dL Hematocrit 34.2 42-52 % Mean Corpuscular Volume 95.5 80-100 fL Mean Corpuscular Hemoglobin 32.1 25-34 pg Mean Corpuscular Hemoglobin Concent 33.6 32-36 g/dl Platelet Count 165 130-400 K/uL Mean Platelet Volume 9.5 7.4-10.4 fL Neutrophils (%) (Auto) 82.2 % Lymphocytes (%) (Auto) 8.4 % Monocytes (%) (Auto) 8.6 % Eosinophils (%) (Auto) 0.1 % Basophils (%) (Auto) 0.2 % Neutrophils # (Auto) 10.81 1.4-6.5 K/uL Lymphocytes # (Auto) 1.11 1.2-3.4 K/uL Monocytes # (Auto) 1.13 0.11-0.59 K/uL Eosinophils # (Auto) 0.01 0-0.5 K/uL Basophils # (Auto) 0.02 0-0.2 K/uL RDW Standard Deviation 43.5 36.4-46.3 fL RDW Coefficient of Variation 12.5 11.5-14.5 % Immature Granulocyte % (Auto) 0.5 % Immature Granulocyte # (Auto) 0.06 0.00-0.02 K/uL Sodium Level 141 136-145 mmol/L Potassium Level 3.4 3.5-5.1 mmol/L Chloride Level 106 98-107 mmol/L Carbon Dioxide Level 27 21-32 mmol/L Anion Gap 8.0 3-11 mmol/L Blood Urea Nitrogen 22 7-18 mg/dl Creatinine 1.10 0.60-1.40 mg/dl Est Creatinine Clear Calc Drug Dose 61.5 ml/min Estimated GFR () 73.1 Estimated GFR (Non- 63.1 BUN/Creatinine Ratio 20.0 10-20 Random Glucose 113 70-99 mg/dl Calcium Level 8.1 8.5-10.1 mg/dl Magnesium Level 1.9 1.8-2.4 mg/dl Total Bilirubin 1.8 0.2-1 mg/dl Direct Bilirubin 0.4 0-0.2 mg/dl Aspartate Amino Transf (AST/SGOT) 21 15-37 U/L Alanine Aminotransferase (ALT/SGPT) 6 12-78 U/L Alkaline Phosphatase 51 45-117 U/L Total Protein 5.7 6.4-8.2 gm/dl Albumin 2.3 3.4-5.0 gm/dl Assessment & Plan calculous cholecystitis ok by cardiology to proceed with lap sergei ok by GI to proceed with lap sergei d/w with Migdalia from medicine team- ok to proceed spoke with pt and . discussed risks of bleeding/dvt/pe/infection/mi/injury to bowel or bile ducts etc..discussed options ok to proceed. will plan or tomorrow with cholangiogram
--- NOTE | 2017-01-13 12:36 | Anesthesiology Progress Note ---
Anesthesia Progress Note Date of Service Jan 13, 2017. Progress Notes The patient is an 81 year old male scheduled for a lap cholecystectomy tomorrow. He presented to the hospital on 01/10/17 complaining of abdominal pain. He was noted to be confused and weak at that time. The patient was admitted and found to have acute cholecystitis on abd CT. A head CT was negative for acute changes. A CXR found a bibasilar pneumonia. He has been started on Zosyn. Other PMH includes asthma, sleep apnea on CPAP, CAD s/p two stents in 2008, HTN, dyslipidemia, TIA 01/07, anemia, and migraines. The patient has no problems with anesthesia. Cardiology saw the patient and is okay with holding his Plavix as long as he is on aspirin. 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 An echo from 2015 shows an EF 55-60% with mild L atrial dilation. He had a normal stress test from 02/04. Labs are significant for WBC 13.1, hgb 11.5, potassium 3.4, and elevated bilirubin. His troponin was negative. On exam the patient is sitting in bed. He does not appear to be distress. He has full neck ROM. TMD is 3 FB and airway is MP 2. He has upper and lower dentures. Lung sounds were decreased at the bases but no rhonchi were noted. Heart was RRR. Carotids were negative for TIAs. The patient is an ASA 3. I spoke to the patient and his that my main concern from an anesthesia standpoint is that his pneumonia could worsen after general anesthesia. I also spoke to Migdalia Guzman who will order a CXR for tomorrow morning. As long as the patient is improved he should be okay for surgery. The patient was consented for general anesthesia. He was counseled to remain NPO after midnight.
[2017-01-13 14:51] VITALS: BP 155/83; PULSE 86; TEMP 36.9; O2SAT 91
[2017-01-13] MEDS: HYDROmorphone INJ 1 MG/ML SYR IV PRN (15:30)
[2017-01-13] MEDS: POTASSIUM CHLORIDE INJ 40 MEQ in SODIUM CHLORIDE 0.9% 1000ML 1,000 ML IV SCH (19:01)
[2017-01-13 21:05] VITALS: BP 172/83; PULSE 80
[2017-01-13 22:47] VITALS: BP 167/89; PULSE 81; TEMP 36.7; O2SAT 94
[2017-01-13 23:40] VITALS: O2SAT 98
[2017-01-14] VITALS (14 sets, daily range): BP systolic 139–186; BP diastolic 75–102; PULSE 85–97; TEMP 36.4–37.2; O2SAT 92–96
[2017-01-14] MEDS: HydrALAZINE HCL 20 MG/ML VIAL IV. PRN ×3 (00:32→18:19)
[2017-01-14] MEDS: PIPERACILL/TAZOBAC IV 3.375 GM in DEXTROSE 5% 100ML IV SCH ×3 (03:52→18:42)
[2017-01-14] MEDS: IPRATROPIUM BROMIDE HFA INHALER INH SCH ×4 (05:28→23:43)
[2017-01-14] MEDS: LEValbuterol HFA 15GM INHALER INH SCH ×4 (05:30→23:43)
[2017-01-14] MEDS: POTASSIUM CHLORIDE INJ 40 MEQ in SODIUM CHLORIDE 0.9% 1000ML 1,000 ML IV SCH (06:34)
--- NOTE | 2017-01-14 07:11 | DIAGNOSTIC IMAGING REPORT ---
CHEST ONE VIEW PORTABLE CLINICAL HISTORY: Follow-up pneumonia. COMPARISON STUDY: Chest radiograph January 10, 2017. FINDINGS: Lung volumes are normal. There is no pneumothorax. There is no evidence of pulmonary edema. There are suspected small bilateral pleural effusions. Bibasilar opacities favor atelectasis. Cardiomediastinal silhouette is stable. Mild cardiomegaly is noted. IMPRESSION: Small bilateral pleural effusions and bibasilar opacities which suggest atelectasis. Electronically signed by: Mehdi De Dios M.D. 01/14/2017 7:09 AM Dictated Date/Time: 01/14/2017 7:08 AM
[2017-01-14] MEDS: CARBIDOPA/LEVODOPA 25/100MG TAB PO SCH ×3 (08:28→17:51)
[2017-01-14] MEDS: METOPROLOL SUCC 50MG EXT REL TAB PO SCH ×2 (08:28→21:16)
[2017-01-14] MEDS: ASPIRIN 81 MG ECTAB PO SCH (08:28)
[2017-01-14] MEDS: SERTRALINE HCL 50 MG TAB PO SCH (08:29)
[2017-01-14] MEDS: HYDROmorphone INJ 1 MG/ML SYR IV PRN (08:41)
--- NOTE | 2017-01-14 09:38 | Hospitalist Progress Note ---
Hospitalist Progress Note Date of Service Jan 14, 2017. (Francheska Guzman PA-C) Subjective Pt evaluation today including: conversation w/ patient, physical exam, chart review, lab review, review of studies, review of inpatient medication list Pain: mild PO Intake: NPO Voiding: no voiding problems The patient was seen and examined this morning. Pt reports doing well this morning, ready for surgery. His abdominal pain is well controlled, just took 2 percocets. He denies nausea, vomiting, diarrhea or constipation. Pt reports breathing has been good, wearing 2 L O2 via NC but denies shortness of breath on exertion or at rest, denies cough. Ambulating from bed to bathroom without difficulty. His is present at bedside and all her questions and concerns were addressed. All Other Systems: Reviewed and Negative (other than per HPI) (Francheska Guzman PA-C) Objective Vital Signs Date Time Temp Pulse Resp B/P Pulse Ox O2 Delivery O2 Flow Rate FiO2 01/14/17 08:16 36.8 87 18 158/81 94 Nasal Cannula 2.0 01/14/17 06:22 161/79 01/14/17 03:51 94 16 169/88 93 Nasal Cannula 2.0 01/14/17 01:39 151/77 01/14/17 00:32 168/102 01/13/17 23:40 98 Nasal Cannula 2.0 CPAP 01/13/17 22:47 36.7 81 16 167/89 94 BiPAP 01/13/17 21:05 80 172/83 01/13/17 15:15 Nasal Cannula 2.0 01/13/17 14:51 36.9 86 16 155/83 91 Room Air (Francheska Guzman PA-C) Physical Exam General Appearance: WD/WN, no apparent distress Eyes: PERRL, EOMI ENT: hearing grossly normal, pharynx normal Neck: supple, no JVD Respiratory/Chest: chest non-tender, lungs clear, no respiratory distress, no accessory muscle use Cardiovascular: regular rate, rhythm, no murmur Abdomen: normal bowel sounds, soft, no organomegaly, + pertinent finding (+ tenderness in the RUQ, nondistended. ) Extremities: normal range of motion, non-tender, no pedal edema, no calf tenderness Neurologic/Psychiatric: alert, oriented x 3, + pertinent finding (slow clear speech, flat affect, parkinsonian resting tremor) Skin: normal color, warm/dry (Francheska Guzman, LAILA) Assessment and Plan Acute cholecystitis - Planned surgery today, today is 5 days of holding plavix. Cont ASA 81 mg. - Bili has trended down to 1.8, WBC trended downward slightly, pain a little better - does not present septic picture so no emergent need for surgery bedside - Cards consulted and rescs hold plavix, continue asa 81 mg and cont beta remy - Gi on board- appreciate recs. no need for MRCP - NSS with 20 meq K+ at 80mL/hrs maintenance not needed as tolerating clears, will continue as pt is nauseous and planned NPO tonight - Zosyn 3.375 mg IV every 6 hours (day 4) - Protonix 40 mg IV daily - Analgesia with morphine sulfate 2-4 mg IV every 2 hours when necessary, hold for SBPs < 90 in the setting of severe pain. Bibasilar pneumonia - Repeat CXR reviewed- Small bilateral pleural effusions and bibasilar opacities which suggest atelectasis - appears stable - likely secondary to decreased respiratory effort due to abdominal pain - Cont Xopenex and Atrovent nebulizers to use every 6 hours awake and every 2 hours when necessary. - Continues Zosyn as noted above; Continue to follow WBC, trending downward, afebrile, cough improving, minimal sputum production. Encourage incentive spirometry CAD/hypertension/history of coronary artery stent/TIA - Cont metoprolol succinate 100 mg QAM, will continue 50 mg by mouth every evening. Hold for sbps less than 100 and dbp less than 60. - hold Plavix as noted above for potential surgery. - HOLD : HCTZ 12.5 mg every morning and lisinopril 40 mg every morning.- restart as able to Hypercholesterolemia -while nothing by mouth, hold atorvastatin 80 mg by mouth every afternoon and Zetia 10 mg by mouth every morning. - can restart after surgery Parkinsonism -continue carbidopa levodopa 25/100, 2 tablets by mouth before meals. GERD -hold ranitidine 50 mg by mouth twice a day, and place on Protonix 40 mg IV daily. Depression/anxiety - Restart sertraline 50 mg by mouth every morning, have available lorazepam 0.5 mg IV every 6 hours when necessary. Vitamin B12 deficiency -hold supplement 1000 g by mouth daily DVT ppx: SCDs, CODE STATUS: FULL CODE Disposition: From home, gen surg plan for surgery today (Francheska Guzman, LAILA) Resident Physician Supervision Note: I interviewed and examined the patient. Discussed with Francheska Guzman PAC and agree with findings and plan as documented in the note. Any exceptions or clarifications are listed here: None this pt is relieved that he will be going to surgery is stable to proceed, will follow post op Documented By: Corona Morales (Corona Morales M.D.)
[2017-01-14] MEDS ORDERED: MIDAZOLAM HCL 1 MG/ML 2ML VIAL ONE (12:36)
[2017-01-14] MEDS ORDERED: FENTANYL CITRATE INJ 50 MCG/1 ML 2 ML VIAL ONE (12:36)
[2017-01-14] MEDS ORDERED: ONDANSETRON INJ 2 MG/ML 2 ML VIAL ONE (12:50)
[2017-01-14] MEDS ORDERED: LIDOCAINE HCL 2% 2 ML VIAL (20MG/ML) ONE (12:50)
[2017-01-14] MEDS ORDERED: LARYING-O-JET KIT (LTA) EXT ONE ×2 (12:50)
[2017-01-14] MEDS ORDERED: ROCURONIUM BROMID 50MG/5ML SYR ONE (12:50)
[2017-01-14] MEDS ORDERED: NEOSTIGMINE METHYLSULFATE 5 MG/5 ML SYR ONE (12:50)
[2017-01-14] MEDS ORDERED: DEXAMETHASONE SOD INJ 4 MG/ML VIAL ONE (12:50)
[2017-01-14] MEDS ORDERED: GLYCOPYRROLATE INJ 0.2 MG/ML VIAL ONE ×2 (12:50→15:01)
[2017-01-14] MEDS ORDERED: PROPOFOL IV EMULSION 10 MG/ML 20 ML VIAL IV ONE (12:50)
[2017-01-14] MEDS ORDERED: ROCURONIUM BROMIDE 10 MG/ML 5 ML VIAL ONE ×2 (12:50→14:52)
[2017-01-14] MEDS ORDERED: EpHEDrine SULFATE INJ 50 MG/ML AMP IV PRN (13:15)
[2017-01-14] MEDS ORDERED: ONDANSETRON INJ 2 MG/ML 2 ML VIAL IV PRN (13:15)
[2017-01-14] MEDS ORDERED: PHENYLEPHRINE 100MCG/ML 5ML SYR IV PRN (13:15)
[2017-01-14] MEDS ORDERED: ATROPINE SULFATE 0.1 MG/ML 5ML SYR IV PRN (13:15)
--- NOTE | 2017-01-14 13:47 | History & Physical Bridge Note ---
H&P Re-Evaluation Bridge Note: I have examined the patient, reviewed the History & Physical and in the interval since the performance of the History & Physical I have noted the following changes of clinical significance: No changes noted
[2017-01-14] MEDS ORDERED: BUPIVACAINE/EPINEPHRINE 0.5% MPF 1:200,000 30 ML VIAL ONE (14:09)
[2017-01-14] MEDS ORDERED: ETOMIDATE 2 MG/ML 20 ML VIAL IV ONE (14:42)
--- NOTE | 2017-01-14 15:35 | DIAGNOSTIC IMAGING REPORT ---
INTRAOPERATIVE CHOLANGIOGRAM HISTORY: Post cholecystectomy. FLUOROSCOPY TIME: 7 seconds. FINDINGS: Fluoroscopy was provided for an intraoperative cholangiogram status post cholecystectomy. Contrast was injected through the cystic duct remnant. Filling defects are noted in the proximal common bile duct.. Diverticulum of the distal common duct. There is good flow of contrast to the small bowel. Contrast extends into the small bowel. IMPRESSION: Fluoroscopy provided for an intraoperative cholangiogram status post cholecystectomy. Potential filling defect proximal common duct. Good flow contrast to the duodenum Electronically signed by: Gavin Sadler M.D. 01/14/2017 3:33 PM Dictated Date/Time: 01/14/2017 3:27 PM
[2017-01-14] MEDS ORDERED: SURGICEL ABSORB HEMOSTAT 2IN X 14IN TOP ONE (15:51)
[2017-01-14] MEDS ORDERED: CONRAY 60% 50 ML VIAL INSTIL ONE (15:51)
--- NOTE | 2017-01-14 16:09 | [facility] Operative Report ---
Operative Report Operative Date Jan 14, 2017. Pre-Operative Diagnosis calculous cholecysitis Post-Operative Diagnosis same with gangrenous gallbladder; ? distal CBD stone/filling defect Procedure(s) Performed lap sergei/intra op cholangiogram Surgeon Dr. Raymundo Casillas Tip Puncher Surgeon(s) Kimo Iglesias PA-C, Afsaneh Arzate PA-C Estimated Blood Loss 10ML Findings gangrenous cholecystitis; ? distal CBD stone/filling defect Specimens A. Gallbladder Anesthesia GET Complication(s) None Disposition Surgical ICU I attest to the content of the Intraoperative Record and any orders documented therein. Any exceptions are noted below.
--- NOTE | 2017-01-14 16:22 | Anesthesiology Progress Note ---
Anesthesia Post Op Note Date & Time Jan 14, 2017 at 16:22 Vital Signs Pain Intensity: 4.0 Vital Signs Past 12 Hours Date Time Temp Pulse Resp B/P Pulse Ox O2 Delivery O2 Flow Rate FiO2 01/14/17 13:24 94 163/93 01/14/17 08:26 Nasal Cannula CPAP 01/14/17 08:16 36.8 87 18 158/81 94 Nasal Cannula 2.0 01/14/17 06:22 161/79 Notes Mental Status: alert / awake / arousable, participated in evaluation Pt Amnestic to Procedure: Yes Nausea / Vomiting: adequately controlled Pain: adequately controlled Airway Patency, RR, SpO2: stable & adequate BP & HR: stable & adequate Hydration State: stable & adequate Anesthetic Complications: no major complications apparent
[2017-01-14] MEDS: HYDROmorphone INJ 2 MG/ML SYR/VIAL IV PRN ×2 (16:25→16:30)
[2017-01-14] MEDS: NSS + 20MEQ KCL 1000ML 1,000 ML IV SCH (17:51)
[2017-01-14] MEDS: HYDROmorphone INJ 0.5 MG/0.5 ML SYR IV PRN (17:57)
--- NOTE | 2017-01-14 18:25 | OPERATIVE REPORT ---
DATE OF OPERATION: 01/14/2017 PREOPERATIVE DIAGNOSIS: Acute calculus cholecystitis. POSTOPERATIVE DIAGNOSIS: Same with questionable distal common bile duct filling defect/stone. PROCEDURE: Laparoscopic cholecystectomy with intraoperative cholangiogram. SURGEON: Raymundo Casillas DO ASSISTANTS: Satnam Iglesias PA-C and Afsaneh Arzate PA-C. ESTIMATED BLOOD LOSS: Approximately 50 mL. COMPLICATIONS: No immediate. ANESTHESIA: General. DISPOSITION: The patient tolerated the procedure well. DESCRIPTION OF PROCEDURE: After informed consent was obtained, the patient was taken to the operating suite and placed in supine position. After successful intubation, the abdomen was sterilely prepped and draped in usual fashion. A supraumbilical incision made with an 11 blade scalpel and carried down through the soft tissue using electrocautery. The anterior rectus fascia was opened using electrocautery and 2-0 Vicryl stay sutures were placed. Peritoneum was entered using blunt finger penetration and a finger sweep was performed. A 12 mm Ritu trocar was placed and the abdomen was insufflated to 18 mmHg. Laparoscope was inserted and the abdomen the abdomen examined 360 degrees. There was a lot of inflammation on the gallbladder itself with omental attachments and adhesions and inflammation. We placed a subxiphoid 5 mm port and 2 right mid abdominal 5 mm ports under direct vision. I pulled the omentum off of the gallbladder. We did use a needle to decompress the gallbladder and got basically white bile indicating cystic duct at its junction. After withdrawing about 20 mL of bile, we were then able to grasp the gallbladder and elevate it superiorly and laterally. We used some blunt dissection to take down some adhesions around the neck of the gallbladder. It was acutely inflamed. I was able to use a [place] dissector to skeletonize the cystic duct. I placed a clip distally and then made a small incision of about 50% circumference in the duct. We did get drain bile from it. We placed a cholangiogram catheter in the right upper quadrant through a separate stab incision. We then placed the catheter into the duct and then inflated the balloon. We did perform a cholangiogram. The common bile duct did light up and we were able to get contrast the whole way down into the duodenum. However, in the distal common duct, there was questionable filling defect versus stone right down near the ampulla. We opted not to go after it as it was very distal and it would be extremely difficult operatively to get out there and this coupled with his LFTs improving, we decided to not procedure any further with that. We removed the catheter. I clipped the duct twice proximally and then transected it. In similar fashion, I was able to identify the cystic artery, skeletonized it, clipped it and divided as well. We removed the gallbladder from the gallbladder fossa using electrocautery. We did leave a little bit of the back wall at the superior aspect because it was essentially to the liver. Once we completely detached it, we placed it into an EndoCatch bag. We had to extend the umbilical incision a little bit and to be able to remove it. We then reinsufflated. We suctioned out any debris, bile and blood from the right upper quadrant. I thoroughly irrigated it. At the end of the procedure, there was adequate hemostasis and no evidence of a bile leak. Because of the raw nature of the fossa, I did place some Surgicel into it as well as a 10 flat Michael-Arizmendi drain and brought out through one of the port sites. We secured to the skin using 2-0 nylon. Final irrigation was performed. A look around the abdomen showed no other enterotomies abnormalities. The trocars were all removed and the abdomen was desufflated. The fascia of the camera port site was closed using 0 Vicryl in an interrupted [id number] fashion. The wounds were all irrigated and closed using 4-0 Monocryl. Marcaine was injected around them for postoperative analgesia and skin glue used as a dressing. The patient was awakened, extubated, and transferred to recovery in stable condition. I attest to the content of the Intraoperative Record and any orders documented therein. Any exceptio ns are noted below.
[2017-01-14] MEDS: ACETAMINOPHEN IV 650 MG in EMPTY BAG 0 ML IV PRN (21:16)
[2017-01-15] VITALS (8 sets, daily range): BP systolic 142–179; BP diastolic 72–84; PULSE 87–101; TEMP 36.3–37; O2SAT 94–99
[2017-01-15] MEDS: PIPERACILL/TAZOBAC IV 3.375 GM in DEXTROSE 5% 100ML IV SCH ×2 (04:17→12:25)
[2017-01-15] MEDS: HydrALAZINE HCL 20 MG/ML VIAL IV. PRN (04:28)
[2017-01-15] MEDS: NSS + 20MEQ KCL 1000ML 1,000 ML IV SCH ×2 (05:30→19:20)
[2017-01-15] MEDS: IPRATROPIUM BROMIDE HFA INHALER INH SCH ×3 (05:35→19:21)
[2017-01-15] MEDS: HYDROmorphone INJ 0.5 MG/0.5 ML SYR IV PRN (05:35)
[2017-01-15] MEDS: LEValbuterol HFA 15GM INHALER INH SCH ×3 (05:35→19:21)
--- NOTE | 2017-01-15 07:38 | Hospitalist Progress Note ---
Hospitalist Progress Note Date of Service Jan 15, 2017. (Francheska Guzman PA-C) Subjective Pt evaluation today including: conversation w/ patient, conversation w/ family , physical exam, chart review, lab review, review of studies, conversation w/ marketing sales consultant, review of inpatient medication list Pain: Mild PO Intake: Tolerating clears Voiding: salas catheter in place The patient was seen and examined this morning. is present at bedside. He notes his abdomen feels a little sore but not the same pain as prior to the lap sergei. He is tolerating clear liquids this morning without nausea. Encouraged the patient to get up with PT/OT today. He is agreeable to this. All Other Systems: Reviewed and Negative (other than listed above) (Francheska Guzman PA-C) Objective Vital Signs Date Time Temp Pulse Resp B/P Pulse Ox O2 Delivery O2 Flow Rate FiO2 01/15/17 07:10 37.0 96 18 161/84 95 Nasal Cannula 2.0 01/15/17 05:12 165/81 01/15/17 04:26 36.7 101 18 179/84 96 01/14/17 23:40 96 Nasal Cannula 2.0 01/14/17 23:12 37.2 94 16 143/80 96 Nasal Cannula 2.0 01/14/17 21:13 97 145/76 01/14/17 20:11 36.5 95 18 139/75 95 Nasal Cannula 2.0 01/14/17 19:09 36.5 95 16 144/76 94 Nasal Cannula 2.0 01/14/17 18:14 36.4 86 18 186/101 95 Nasal Cannula 2.0 01/14/17 17:46 36.8 85 18 179/96 96 Nasal Cannula 2.0 01/14/17 17:15 36.8 87 16 158/82 92 Nasal Cannula 2.0 01/14/17 17:15 92 Nasal Cannula 2.0 01/14/17 17:15 92 Nasal Cannula 2.0 01/14/17 17:00 86 16 132/91 96 01/14/17 17:00 87 16 01/14/17 16:55 86 20 175/89 96 01/14/17 16:55 86 20 01/14/17 16:50 85 16 01/14/17 16:50 85 16 94 2/23/17 16:49 137/74 01/14/17 16:47 86 21 95 01/14/17 16:47 86 21 01/14/17 16:46 36.9 87 20 137/74 97 Nasal Cannula 2 01/14/17 16:44 152/86 01/14/17 16:42 86 21 01/14/17 16:42 86 21 95 01/14/17 16:39 144/74 01/14/17 16:37 86 16 94 01/14/17 16:37 86 16 01/14/17 16:36 85 16 93 01/14/17 16:36 86 16 01/14/17 16:34 133/66 01/14/17 16:31 86 15 94 01/14/17 16:31 86 15 01/14/17 16:29 139/69 01/14/17 16:26 90 16 01/14/17 16:26 89 16 98 01/14/17 16:24 153/80 01/14/17 16:21 89 20 01/14/17 16:21 88 20 96 01/14/17 16:19 156/81 01/14/17 16:16 36.7 90 16 158/80 96 Mask 10 01/14/17 16:16 90 19 01/14/17 16:16 90 19 93 01/14/17 13:24 94 163/93 01/14/17 08:26 Nasal Cannula CPAP 01/14/17 08:16 36.8 87 18 158/81 94 Nasal Cannula 2.0 (Francheska Guzman, PA-C) Physical Exam General Appearance: WD/WN, no apparent distress, + pertinent finding ( parkinsonian tremor at rest, slow clear speech) Eyes: PERRL, EOMI ENT: hearing grossly normal, pharynx normal Neck: supple, no JVD Respiratory/Chest: lungs clear, no respiratory distress, no accessory muscle use Cardiovascular: regular rate, rhythm, no murmur Abdomen: normal bowel sounds, soft, no organomegaly, + pertinent finding ( abdominal dressing over the RUQ intact, ZOEY drain present with bloody fluid draining, nontender to percussion or palpation. ) Extremities: non-tender, no pedal edema, no calf tenderness Neurologic/Psychiatric: alert, oriented x 3, + pertinent finding (appears brighter today) Skin: normal color, warm/dry (Francheska Guzman, LAILA) Laboratory Results Last 24 Hours Test 01/14/17 18:50 01/15/17 04:44 Total Bilirubin 2.0 mg/dl Direct Bilirubin 0.5 mg/dl Aspartate Amino Transf (AST/SGOT) 61 U/L Alanine Aminotransferase (ALT/SGPT) 14 U/L Alkaline Phosphatase 75 U/L Total Protein 6.0 gm/dl Albumin 2.4 gm/dl (Francheska Guzman, LAILA) Assessment and Plan Acute cholecystitis - s/p lap sergei by Dr. Casillas on 01/14/17 - ZOEY drain drained ~85 mL since 2400 - Will restart plavix when safe from a surgical standpoint, spoke with surgery and they're ok with restarting tomorrow pending hgb is stable. - Pt has been advanced to clears. Will watch LFTs and make sure not elevating. If elevated then could consider the need for a ERCP by GI in the event that the small stone seen intraoperatively has blocked flow. Surg says the stone was very small and likely will pass on its own. - Zosyn 3.375 mg IV every 6 hours (day 5) - Protonix 40 mg IV daily - Analgesia with morphine sulfate 2-4 mg IV every 2 hours when necessary, - pt has not required pain medication overnight. Hold for SBPs < 90 in the setting of severe pain Bibasilar pneumonia - Repeat CXR reviewed on 01/15- Small bilateral pleural effusions and bibasilar opacities which suggest atelectasis - appears stable - pt denies shortness of breath, cough, and notes breathing feels improved - Titrate off O2 as tolerated - Cont Xopenex and Atrovent nebulizers to use every 6 hours awake and every 2 hours when necessary. - Continues Zosyn as noted above; Continue to follow WBC, trending downward, afebrile, cough improving, minimal sputum production. Encourage incentive spirometry CAD/hypertension/history of coronary artery stent/TIA - cards on board- continue asa 81 mg and cont beta remy - Cont metoprolol succinate 100 mg QAM, will continue 50 mg by mouth every evening. Hold for sbps less than 100 and dbp less than 60. - Restart Plavix when safe from surgical standpoint - likely tomorrow - Restart HCTZ 12.5 mg every morning, lisinopril 40 mg every morning. Hypercholesterolemia - Will restart atorvastatin 80 mg by mouth every afternoon and Zetia 10 mg by mouth every morning. Parkinsonism -continue carbidopa levodopa 25/100, 2 tablets by mouth before meals. GERD - Restart ranitidine 50 mg by mouth twice a day, and place on Protonix 40 mg IV daily. Depression/anxiety - Cont sertraline 50 mg by mouth every morning, have available lorazepam 0.5 mg IV every 6 hours when necessary. Vitamin B12 deficiency -hold supplement 1000 g by mouth daily DVT ppx: SCDs, CODE STATUS: FULL CODE Disposition: From home, PT/OT to eval, likely discharge within 1-2 days. (Francheska Guzman, LAILA) PA Physician Supervision Note: I interviewed and examined the patient. Discussed with Francheska Guzman PAC and agree with findings and plan as documented in the note. Any exceptions or clarifications are listed here: None Pt is doing much better post operatively, able to tolerate po, some flatus vitals and labs reviewed abd with quiet bowel sounds continue to support as diet advances post op, continue antibiotics Documented By: Corona Morales (Corona Morales M.D.)
[2017-01-15 08:07] LABS: BASO % 0.1 %; BASO ABS # 0.01 K/uL (0-0.2); COMPLETE YES; HEMATOCRIT 34.6 % (42-52); IG% 0.7 %; LYMPH % 4.7 %; LYMPH ABS # 0.72 K/uL (1.2-3.4); MEAN CELL VOLUME 94.5 fL (80-100); MEAN CORPUSCULAR HEMOGLOBIN 32.2 pg (25-34); MEAN CORPUSCULAR HGB CONC 34.1 g/dl (32-36); MEAN PLATELET VOLUME 9.3 fL (7.4-10.4); MONO % 11.1 %; NEUT % 83.4 %; PLATELET COUNT 216 K/uL (130-400); RED BLOOD COUNT 3.66 M/uL (4.7-6.1); WHITE BLOOD COUNT 15.27 K/uL (4.8-10.8)
[2017-01-15 08:45] LABS: BUN/CREATININE RATIO 21.8 (10-20); CALCIUM 8.4 mg/dl (8.5-10.1); CREATININE 0.87 mg/dl (0.60-1.40); POTASSIUM 3.7 mmol/L (3.5-5.1)
[2017-01-15] MEDS ORDERED: HYDR-5688 PO (09:09)
--- NOTE | 2017-01-15 09:14 | Surgery Progress Note ---
Surgery Progress Note Date of Service Jan 15, 2017. Subjective Post OP Day: 1 doing reasonably ok. pain controlled. not much appetite. Objective Vital Signs: Date Time Temp Pulse Resp B/P Pulse Ox O2 Delivery O2 Flow Rate FiO2 01/15/17 07:47 36.8 99 17 142/72 95 Nasal Cannula 4.0 01/15/17 07:40 95 Nasal Cannula 4.0 01/15/17 07:10 37.0 96 18 161/84 95 Nasal Cannula 2.0 01/15/17 05:12 165/81 01/15/17 04:26 36.7 101 18 179/84 96 01/14/17 23:40 96 Nasal Cannula 2.0 01/14/17 23:12 37.2 94 16 143/80 96 Nasal Cannula 2.0 01/14/17 21:13 97 145/76 01/14/17 20:11 36.5 95 18 139/75 95 Nasal Cannula 2.0 01/14/17 19:09 36.5 95 16 144/76 94 Nasal Cannula 2.0 01/14/17 18:14 36.4 86 18 186/101 95 Nasal Cannula 2.0 01/14/17 17:46 36.8 85 18 179/96 96 Nasal Cannula 2.0 01/14/17 17:15 36.8 87 16 158/82 92 Nasal Cannula 2.0 01/14/17 17:15 92 Nasal Cannula 2.0 01/14/17 17:15 92 Nasal Cannula 2.0 01/14/17 17:00 86 16 132/91 96 01/14/17 17:00 87 16 01/14/17 16:55 86 20 175/89 96 01/14/17 16:55 86 20 01/14/17 16:50 85 16 01/14/17 16:50 85 16 94 01/14/17 16:49 137/74 01/14/17 16:47 86 21 95 01/14/17 16:47 86 21 01/14/17 16:46 36.9 87 20 137/74 97 Nasal Cannula 2 01/14/17 16:44 152/86 01/14/17 16:42 86 21 01/14/17 16:42 86 21 95 01/14/17 16:39 144/74 01/14/17 16:37 86 16 94 01/14/17 16:37 86 16 01/14/17 16:36 85 16 93 01/14/17 16:36 86 16 01/14/17 16:34 133/66 01/14/17 16:31 86 15 94 01/14/17 16:31 86 15 01/14/17 16:29 139/69 01/14/17 16:26 90 16 01/14/17 16:26 89 16 98 01/14/17 16:24 153/80 01/14/17 16:21 89 20 01/14/17 16:21 88 20 96 01/14/17 16:19 156/81 01/14/17 16:16 36.7 90 16 158/80 96 Mask 10 01/14/17 16:16 90 19 01/14/17 16:16 90 19 93 01/14/17 13:24 94 163/93 Physical Exam: ZOEY drainage (bloody. no bile. ) General Appearance: no apparent distress Head: normocephalic Abdomen: non distended, soft Incision(s): clean, dry, intact Laboratory Results: Results Past 24 Hours Test 01/14/17 18:50 01/15/17 07:48 01/15/17 08:54 Range/Units Total Bilirubin 2.0 0.2-1 mg/dl Direct Bilirubin 0.5 0-0.2 mg/dl Aspartate Amino Transf (AST/SGOT) 61 15-37 U/L Alanine Aminotransferase (ALT/SGPT) 14 12-78 U/L Alkaline Phosphatase 75 45-117 U/L Total Protein 6.0 6.4-8.2 gm/dl Albumin 2.4 3.4-5.0 gm/dl White Blood Count 15.27 4.8-10.8 K/uL Red Blood Count 3.66 4.7-6.1 M/uL Hemoglobin 11.8 14.0-18.0 g/dL Hematocrit 34.6 42-52 % Mean Corpuscular Volume 94.5 80-100 fL Mean Corpuscular Hemoglobin 32.2 25-34 pg Mean Corpuscular Hemoglobin Concent 34.1 32-36 g/dl Platelet Count 216 130-400 K/uL Mean Platelet Volume 9.3 7.4-10.4 fL Neutrophils (%) (Auto) 83.4 % Lymphocytes (%) (Auto) 4.7 % Monocytes (%) (Auto) 11.1 % Eosinophils (%) (Auto) 0.0 % Basophils (%) (Auto) 0.1 % Neutrophils # (Auto) 12.75 1.4-6.5 K/uL Lymphocytes # (Auto) 0.72 1.2-3.4 K/uL Monocytes # (Auto) 1.69 0.11-0.59 K/uL Eosinophils # (Auto) 0.00 0-0.5 K/uL Basophils # (Auto) 0.01 0-0.2 K/uL RDW Standard Deviation 43.2 36.4-46.3 fL RDW Coefficient of Variation 12.5 11.5-14.5 % Immature Granulocyte % (Auto) 0.7 % Immature Granulocyte # (Auto) 0.10 0.00-0.02 K/uL Sodium Level 138 136-145 mmol/L Potassium Level 3.7 3.5-5.1 mmol/L Chloride Level 105 98-107 mmol/L Carbon Dioxide Level 25 21-32 mmol/L Anion Gap 8.0 3-11 mmol/L Blood Urea Nitrogen 19 7-18 mg/dl Creatinine 0.87 0.60-1.40 mg/dl Est Creatinine Clear Calc Drug Dose 77.8 ml/min Estimated GFR () 94.5 Estimated GFR (Non- 81.5 BUN/Creatinine Ratio 21.8 10-20 Random Glucose 142 70-99 mg/dl Calcium Level 8.4 8.5-10.1 mg/dl Assessment & Plan 12/15/16 pt doing ok /as expected. awaiting AM LFT's...if decreasing, can advance diet. if increasing, may need to d/w GI increase activity/PT/OT no acute post op issues. Dr. Jhaveri covering for weekend. 12/13/16 calculous cholecystitis ok by cardiology to proceed with lap sergei ok by GI to proceed with lap sergei d/w with Migdalia from medicine team- ok to proceed spoke with pt and . discussed risks of bleeding/dvt/pe/infection/mi/injury to bowel or bile ducts etc..discussed options ok to proceed. will plan or tomorrow with cholangiogram calculous cholecystitis ok by cardiology to proceed with lap sergei ok by GI to proceed with lap sergei d/w with Migdalia from medicine team- ok to proceed spoke with pt and . discussed risks of bleeding/dvt/pe/infection/mi/injury to bowel or bile ducts etc..discussed options ok to proceed. will plan or tomorrow with cholangiogram
[2017-01-15] MEDS: CARBIDOPA/LEVODOPA 25/100MG TAB PO SCH ×3 (10:19→17:30)
[2017-01-15] MEDS: LISINOPRIL 40 MG TAB PO SCH (10:19)
[2017-01-15] MEDS: RANITIDINE HCL 150 MG TAB PO SCH ×2 (10:19→21:14)
[2017-01-15] MEDS: EZETIMIBE 10MG TAB PO SCH (10:19)
[2017-01-15] MEDS: HYDROCHLOROTHIAZIDE 25 MG TAB PO SCH (10:20)
[2017-01-15] MEDS: ASPIRIN 81 MG ECTAB PO SCH (10:21)
[2017-01-15] MEDS: SERTRALINE HCL 50 MG TAB PO SCH (10:21)
[2017-01-15] MEDS: METOPROLOL SUCC 50MG EXT REL TAB PO SCH ×2 (10:21→21:14)
[2017-01-15] MEDS: ACETAMINOPHEN IV 650 MG in EMPTY BAG 0 ML IV PRN (13:09)
[2017-01-15] MEDS: AMPICILLIN/SULBACTAM SOD INJ 3,000 MG in SODIUM CHLORIDE 0.9% 100ML 100 ML IV SCH ×2 (16:38→22:28)
[2017-01-15] MEDS ORDERED: ATORVASTATIN 40 MG TAB PO SCH (21:00)
[2017-01-16] VITALS (7 sets, daily range): BP systolic 110–182; BP diastolic 60–102; PULSE 89–113; TEMP 36.4–37.6; O2SAT 88–92
[2017-01-16] MEDS: IPRATROPIUM BROMIDE HFA INHALER INH SCH ×5 (00:11→23:41)
[2017-01-16] MEDS: LEValbuterol HFA 15GM INHALER INH SCH ×5 (00:12→23:41)
[2017-01-16] MEDS: AMPICILLIN/SULBACTAM SOD INJ 3,000 MG in SODIUM CHLORIDE 0.9% 100ML 100 ML IV SCH ×4 (04:28→21:45)
[2017-01-16] MEDS: HydrALAZINE HCL 20 MG/ML VIAL IV. PRN ×2 (05:16→23:40)
[2017-01-16] MEDS: NSS + 20MEQ KCL 1000ML 1,000 ML IV SCH (06:00)
[2017-01-16] MEDS ORDERED: AMOX875T PO (08:27)
--- NOTE | 2017-01-16 08:28 | Discharge Instructions ---
Discharge Instructions Admission Reason for Admission: Acute Cholecystitis Pneumonia Of Both [place] (Raymundo Casillas D.O.) Discharge Discharge Diagnosis / Problem: acute cholecystitis (Raymundo Casillas D.O.) Discharge Diagnosis / Problem: cholecystitis, s/p cholecystectomy (Corona Morales M.D.) Discharge Goals Goal(s): Decrease discomfort, Improve function (Raymundo Casillas D.O.) Goal(s): Diagnostic testing, Therapeutic intervention (Corona Morales M.D.) Activity Recommendations Activity Limitations: as noted below Lifting Limitations: no more than 10 pounds Exercise/Sports Limitations: until after follow-up appointment May Resume Sexual Activity: after follow-up appointment Shower/Bathe: no limitations . (Raymundo Casillas D.O.) Activity Limitations: as noted below Lifting Limitations: gradually increase as tolerated (Corona Morales M.D.) Instructions / Follow-Up Instructions / Follow-Up call [phone] for f/u appointment with Dr. Casillas in 1-2 weeks. (Raymundo Casillas D.O.) Current Hospital Diet Patient's current hospital diet: Clear Liquid Diet (Raymundo Casillas D.O.) Discharge Diet Recommended Diet: Regular Diet (Raymundo Casillas D.O.) Recommended Diet: Regular Diet (Corona Morales M.D.) Procedures Procedures Performed: Laparoscopic Cholecystectomy with Cholangiogram (Raymundo Casillas D.O.) Pending Studies Studies pending at discharge: yes List of pending studies: pathology report (Raymundo Casillas D.O.) Studies pending at discharge: no (Corona Morales M.D.) Laboratory Results Lipid Panel Test 10/27/16 07:42 Range/Units Triglycerides Level 53 0-150 mg/dl Cholesterol Level 143 0-200 mg/dl HDL Cholesterol 49 mg/dl Cholesterol/HDL Ratio 2.9 LDL Cholesterol, Calculated 83 mg/dl (Raymundo Casillas D.O.) Medical Emergencies . Who to Call and When: Medical Emergencies: If at any time you feel your situation is an emergency, please call 911 immediately. . (Raymundo Casillas D.O.) Non-Emergent Contact Non-Emergency issues call your: Primary Care Provider, Surgeon Call Non-Emergent contact if: temperature is above 101, your pain is not controlled, wound has increased drainage, wound has increased redness (Raymundo Casillas D.O.) Non-Emergency issues call your: Surgeon Call Non-Emergent contact if: temperature is above 101, your pain is unusual for you (Corona Morales M.D.) . "Provider Documentation" section prepared by Raymundo Casillas. (Raymundo Casillas D.O.) VTE Core Measure Inpt VTE Proph given/why not?: SCD's (Raymundo Casillas D.O.)
[2017-01-16] MEDS: CARBIDOPA/LEVODOPA 25/100MG TAB PO SCH ×3 (08:30→17:26)
[2017-01-16] MEDS: ASPIRIN 81 MG ECTAB PO SCH (08:30)
[2017-01-16] MEDS: LISINOPRIL 40 MG TAB PO SCH (08:31)
[2017-01-16] MEDS: RANITIDINE HCL 150 MG TAB PO SCH ×2 (08:31→21:47)
[2017-01-16] MEDS: HYDROCHLOROTHIAZIDE 25 MG TAB PO SCH (08:31)
[2017-01-16] MEDS: SERTRALINE HCL 50 MG TAB PO SCH (08:32)
[2017-01-16] MEDS: METOPROLOL SUCC 50MG EXT REL TAB PO SCH ×2 (08:32→21:46)
[2017-01-16] MEDS: EZETIMIBE 10MG TAB PO SCH (08:32)
[2017-01-16 11:49] LABS: HEMATOCRIT 35.3 % (42-52); MEAN CELL VOLUME 94.9 fL (80-100); MEAN CORPUSCULAR HEMOGLOBIN 31.7 pg (25-34); MEAN CORPUSCULAR HGB CONC 33.4 g/dl (32-36); MEAN PLATELET VOLUME 8.9 fL (7.4-10.4); PLATELET COUNT 260 K/uL (130-400); RED BLOOD COUNT 3.72 M/uL (4.7-6.1); WHITE BLOOD COUNT 12.32 K/uL (4.8-10.8)
[2017-01-16 12:18] LABS: BUN/CREATININE RATIO 16.5 (10-20); CALCIUM 8.2 mg/dl (8.5-10.1); POTASSIUM 3.5 mmol/L (3.5-5.1)
[2017-01-16 12:53] LABS: BASO % 0.2 %; BASO ABS # 0.03 K/uL (0-0.2); COMPLETE YES; EOS % 0.5 %; IG% 3.2 %; LYMPH % 9.5 %; LYMPH ABS # 1.17 K/uL (1.2-3.4); MONO % 11.9 %; NEUT % 74.7 %
--- NOTE | 2017-01-16 13:04 | Discharge Summary ---
Discharge Summary Date of Service Jan 16, 2017. Discharge Summary Admission Date: Jan 10, 2017 at 18:53 Discharge Date: Jan 17, 2017 Discharge Disposition: Home Principal Diagnosis: cholecystitis, s/p cholecystectomy Consultations: Dr Casillas Medication Reconciliation New Medications: Amoxicillin & Pot Clavulanate (Augmentin 875-125 mg) 1 Tab Tab 875 MG PO BID, #8 TAB Hydrocodone/Acetaminophen 5MG/325MG ([place] 5MG/325MG) Tab 1-2 TABLET PO Q4H PRN for Pain, #40 TAB Continued Medications: Atorvastatin (Lipitor) 80 Mg Tab 80 MG PO QPM, TAB Calcium/Vitamin D (Os-Bry 500 Plus D) Tab 1 TAB PO DAILY AT 1200, TAB Carbidopa/Levodopa (Sinemet 25MG/100MG) Tab 2 TAB PO AC, TAB Clopidogrel (Plavix) 75 Mg Tab 75 MG PO HS, TAB Cyanocobalamin (B12) 1,000 Mcg Tab 1000 MCG PO DAILY Ezetimibe (Zetia) 10 Mg Tab 10 MG PO QAM, TAB Hydrochlorothiazide (Hydrochlorothiazide) 12.5 Mg Tab 12.5 MG PO QAM, TAB 5 Refills Lisinopril (Zestril) 40 Mg Tab 40 MG PO QAM, TAB Metoprolol Succ (Toprol Xl) (Toprol-Xl ) 100 Mg Tabcr 100 MG PO QAM, TAB Metoprolol Succ (Toprol Xl) (Toprol-Xl) 50 Mg Tabcr 50 MG PO QPM, #30 TAB Polyethylene Glycol 3350 (Miralax) 1 Pow Pow 17 GM PO QPM, #255 GM Ranitidine (Zantac) 150 Mg Tab 150 MG PO BID, TAB Sertraline (Zoloft) 50 Mg Tab 50 MG PO QAM, TAB Discharge Exam Review of Systems: Constitutional: No chills, No fever Respiratory: No cough, No dyspnea on exertion, No sputum Abdomen: No diarrhea, No nausea, No pain Genitourinary - Male: No dysuria, No hematuria Neurologic: + memory loss, + problem reported (some confusion in morning ) Psychiatric: No anhedonism, No depression symptoms Physical Exam: General Appearance: WD/WN, + mild distress Eyes: PERRL, EOMI Neck: supple, no JVD Respiratory/Chest: chest non-tender, lungs clear, normal breath sounds Cardiovascular: regular rate, rhythm, no murmur Abdomen / GI: normal bowel sounds, soft, + tenderness (but expected after surgery) Neurologic/Psychiatric: alert, oriented x 3, + pertinent finding (confused at times) Hospital Course Acute cholecystitis- s/p lap sergei by Dr. Casillas on 01/14/17 restart plavix upon discharge and complete augmentin Bibasilar pneumonia also using the augmentin CAD/hypertension/history of coronary artery stent/TIA restart plavix, metoprolol succinate 100 mg QAM, will continue 50 mg by mouth every evening.HCTZ 12.5 mg every morning, lisinopril 40 mg every morning. atorvastatin 80 mg by mouth every afternoon and Zetia 10 mg by mouth every morning. Parkinsonism carbidopa levodopa 25/100, 2 tablets by mouth before meals. GERD has not been issue during hosptial stay, ranitidine 50 mg by mouth twice a day, Depression/anxiety sertraline 50 mg by mouth every morning CODE STATUS: FULL CODE Total Time Spent: Greater than 30 minutes This includes examination of the patient, discharge planning, medication reconciliation, and communication with other providers. Discharge Instructions Please refer to the electronic Patient Visit Report (Discharge Instructions) for additional information.
--- NOTE | 2017-01-16 13:23 | Progress Note ---
Subjective Date of Service: Jan 16, 2017. Subjective pt is confused today, has been so since 01/15 pm, has non focal issues, agitated and pressured speech, vs and labs relatively stable at bedside and updated Problem List Medical Problems: (1) Acute cholecystitis Status: Acute (2) Altered mental status Status: Acute (3) CVA (cerebral vascular accident) Status: Acute (4) Leukocytosis Status: Acute Review of Systems Constitutional: + weakness, No chills, No fever Respiratory: No cough, No shortness of breath Cardiac: No chest pain, No edema Abdomen: + pain (mild), No diarrhea, No nausea, No vomiting Male : No dysuria, No urinary frequency Neurologic: + memory loss, + weakness Objective Vital Signs Date Time Temp Pulse Resp B/P Pulse Ox O2 Delivery O2 Flow Rate FiO2 01/16/17 11:45 36.7 89 14 110/60 90 Room Air 01/16/17 10:30 91 Nasal Cannula 2.0 01/16/17 08:30 Room Air 01/16/17 07:45 37.6 113 18 178/92 91 Room Air 2.0 Nasal Cannula 01/16/17 05:52 158/78 01/16/17 05:13 108 18 182/94 92 Nasal Cannula 2.0 01/16/17 00:00 Nasal Cannula 2.0 01/15/17 22:50 36.5 99 20 174/83 94 Nasal Cannula 2.0 01/15/17 16:45 Room Air 01/15/17 15:22 36.3 99 16 150/83 97 Nasal Cannula 5.0 Physical Exam General Appearance: WD/WN, + moderate distress Neck: supple, no JVD Respiratory/Chest: chest non-tender, lungs clear, normal breath sounds Cardiovascular: regular rate, rhythm, no murmur Abdomen: normal bowel sounds, soft, + tenderness Extremities: normal inspection, no pedal edema Neurologic/Psychiatric: alert, + disoriented Laboratory Results Last 24 Hours Test 01/16/17 10:07 01/16/17 11:07 White Blood Count 12.32 K/uL Red Blood Count 3.72 M/uL Hemoglobin 11.8 g/dL Hematocrit 35.3 % Mean Corpuscular Volume 94.9 fL Mean Corpuscular Hemoglobin 31.7 pg Mean Corpuscular Hemoglobin Concent 33.4 g/dl Platelet Count 260 K/uL Mean Platelet Volume 8.9 fL Neutrophils (%) (Auto) 74.7 % Lymphocytes (%) (Auto) 9.5 % Monocytes (%) (Auto) 11.9 % Eosinophils (%) (Auto) 0.5 % Basophils (%) (Auto) 0.2 % Neutrophils # (Auto) 9.20 K/uL Lymphocytes # (Auto) 1.17 K/uL Monocytes # (Auto) 1.47 K/uL Eosinophils # (Auto) 0.06 K/uL Basophils # (Auto) 0.03 K/uL RDW Standard Deviation 43.6 fL RDW Coefficient of Variation 12.6 % Immature Granulocyte % (Auto) 3.2 % Immature Granulocyte # (Auto) 0.39 K/uL Sodium Level 144 mmol/L Potassium Level 3.5 mmol/L Chloride Level 107 mmol/L Carbon Dioxide Level 28 mmol/L Anion Gap 9.0 mmol/L Blood Urea Nitrogen 17 mg/dl Creatinine 1.00 mg/dl Est Creatinine Clear Calc Drug Dose 67.7 ml/min Estimated GFR () 82.0 Estimated GFR (Non- 70.8 BUN/Creatinine Ratio 16.5 Random Glucose 159 mg/dl Calcium Level 8.2 mg/dl Total Bilirubin 2.0 mg/dl Direct Bilirubin 0.4 mg/dl Aspartate Amino Transf (AST/SGOT) 37 U/L Alanine Aminotransferase (ALT/SGPT) 15 U/L Alkaline Phosphatase 74 U/L Total Protein 6.0 gm/dl Albumin 2.5 gm/dl Assessment and Plan Acute cholecystitis- s/p lap sergei by Dr. Casillas on 01/14/17 restart plavix and continue unasyn complete augmentin at discharge I reveiwed labs 01/16, all improved except small bump in total bili, likely not clinically significant Delerium/encephalopathy, check urine culture, check CT head, will assure good sleep with seroquel Bibasilar pneumonia also using the unasyn/augmentin CAD/hypertension/history of coronary artery stent/TIA restart plavix, metoprolol succinate 100 mg QAM, will continue 50 mg by mouth every evening.HCTZ 12.5 mg every morning, lisinopril 40 mg every morning. atorvastatin 80 mg by mouth every afternoon and Zetia 10 mg by mouth every morning. Parkinsonism carbidopa levodopa 25/100, 2 tablets by mouth before meals. GERD has not been issue during hosptial stay, ranitidine 50 mg by mouth twice a day, Depression/anxiety sertraline 50 mg by mouth every morning CODE STATUS: FULL CODE
--- NOTE | 2017-01-16 13:25 | Surgery Progress Note ---
Surgery Progress Note Date of Service Jan 16, 2017. Subjective More confused. notes no pain or nausea. Was tolerating diet. Drain site leaking. Objective Vital Signs: Date Time Temp Pulse Resp B/P Pulse Ox O2 Delivery O2 Flow Rate FiO2 01/16/17 11:45 36.7 89 14 110/60 90 Room Air 01/16/17 10:30 91 Nasal Cannula 2.0 01/16/17 08:30 Room Air 01/16/17 07:45 37.6 113 18 178/92 91 Room Air 2.0 Nasal Cannula 01/16/17 05:52 158/78 01/16/17 05:13 108 18 182/94 92 Nasal Cannula 2.0 01/16/17 00:00 Nasal Cannula 2.0 01/15/17 22:50 36.5 99 20 174/83 94 Nasal Cannula 2.0 01/15/17 16:45 Room Air 01/15/17 15:22 36.3 99 16 150/83 97 Nasal Cannula 5.0 Physical Exam: ZOEY drainage (bloody) General Appearance: WD/WN, no apparent distress Head: normocephalic, atraumatic Neck: trachea midline Respiratory/Chest: normal breath sounds, no respiratory distress Cardiovascular: regular rate, rhythm Abdomen: normal bowel sounds, non tender, non distended, soft Incision(s): clean, dry, intact Laboratory Results: Results Past 24 Hours Test 01/16/17 10:07 01/16/17 11:07 Range/Units White Blood Count 12.32 4.8-10.8 K/uL Red Blood Count 3.72 4.7-6.1 M/uL Hemoglobin 11.8 14.0-18.0 g/dL Hematocrit 35.3 42-52 % Mean Corpuscular Volume 94.9 80-100 fL Mean Corpuscular Hemoglobin 31.7 25-34 pg Mean Corpuscular Hemoglobin Concent 33.4 32-36 g/dl Platelet Count 260 130-400 K/uL Mean Platelet Volume 8.9 7.4-10.4 fL Neutrophils (%) (Auto) 74.7 % Lymphocytes (%) (Auto) 9.5 % Monocytes (%) (Auto) 11.9 % Eosinophils (%) (Auto) 0.5 % Basophils (%) (Auto) 0.2 % Neutrophils # (Auto) 9.20 1.4-6.5 K/uL Lymphocytes # (Auto) 1.17 1.2-3.4 K/uL Monocytes # (Auto) 1.47 0.11-0.59 K/uL Eosinophils # (Auto) 0.06 0-0.5 K/uL Basophils # (Auto) 0.03 0-0.2 K/uL RDW Standard Deviation 43.6 36.4-46.3 fL RDW Coefficient of Variation 12.6 11.5-14.5 % Immature Granulocyte % (Auto) 3.2 % Immature Granulocyte # (Auto) 0.39 0.00-0.02 K/uL Sodium Level 144 136-145 mmol/L Potassium Level 3.5 3.5-5.1 mmol/L Chloride Level 107 98-107 mmol/L Carbon Dioxide Level 28 21-32 mmol/L Anion Gap 9.0 3-11 mmol/L Blood Urea Nitrogen 17 7-18 mg/dl Creatinine 1.00 0.60-1.40 mg/dl Est Creatinine Clear Calc Drug Dose 67.7 ml/min Estimated GFR () 82.0 Estimated GFR (Non- 70.8 BUN/Creatinine Ratio 16.5 10-20 Random Glucose 159 70-99 mg/dl Calcium Level 8.2 8.5-10.1 mg/dl Total Bilirubin 2.0 0.2-1 mg/dl Direct Bilirubin 0.4 0-0.2 mg/dl Aspartate Amino Transf (AST/SGOT) 37 15-37 U/L Alanine Aminotransferase (ALT/SGPT) 15 12-78 U/L Alkaline Phosphatase 74 45-117 U/L Total Protein 6.0 6.4-8.2 gm/dl Albumin 2.5 3.4-5.0 gm/dl Microbiology Results 01/16/17 Urine Culture, Received Pending Assessment & Plan Confusion - management per medicine. Healing well s/p lap sergei. Would keep drain for now. LFTs stable (bili slightly higher but ast/ alt improved). Continue to monitor. Stable for discharge once OK from medical standpoint.
[2017-01-16] MEDS ORDERED: LORAZEPAM INJ 0.5 MG in SYRINGE 0.75 ML IV PRN (13:30)
[2017-01-16] MEDS ORDERED: LORAZEPAM 2 MG/ML 1 ML VIAL IV PRN (13:30)
[2017-01-16] MEDS ORDERED: LORAZEPAM 0.5 MG TAB PO PRN (13:30)
--- NOTE | 2017-01-16 13:49 | DIAGNOSTIC IMAGING REPORT ---
CT HEAD WITHOUT CONTRAST (CT) CLINICAL HISTORY: Change in mental status. Stroke. COMPARISON STUDY: 01/10/2017 TECHNIQUE: Axial CT of the brain is performed from the vertex to the skull base. IV contrast was not administered for this examination. CT DOSE: 687.98 mGy.cm FINDINGS: No intra or extra-axial mass lesions are visualized. There is no CT evidence of acute cortical infarction. There is no evidence of midline shift. There is no acute hemorrhage. No calvarial fractures are visualized. There are moderately extensive white matter hypodensities likely on a small vessel basis. There is an old left basal ganglial lacunar infarct. There is no evidence of pathologic ventricular dilatation. There is no evidence of acute sinusitis. Vertebral artery calcifications are again evident. IMPRESSION: No acute intracranial findings Electronically signed by: Donovan Hu M.D. 01/16/2017 1:48 PM Dictated Date/Time: 01/16/2017 1:44 PM
[2017-01-16] MEDS ORDERED: QUETIAPINE FUMARATE 25 MG TAB PO SCH (21:00)
[2017-01-17 00:09] VITALS: BP 107/57; O2SAT 95
[2017-01-17] MEDS: AMPICILLIN/SULBACTAM SOD INJ 3,000 MG in SODIUM CHLORIDE 0.9% 100ML 100 ML IV SCH ×2 (03:16→10:42)
[2017-01-17] MEDS: IPRATROPIUM BROMIDE HFA INHALER INH SCH (05:21)
[2017-01-17] MEDS: LEValbuterol HFA 15GM INHALER INH SCH (05:21)
[2017-01-17 07:31] VITALS: BP 125/71; PULSE 86; TEMP 36.9; O2SAT 91
[2017-01-17] MEDS: RANITIDINE HCL 150 MG TAB PO SCH (08:29)
[2017-01-17] MEDS: CARBIDOPA/LEVODOPA 25/100MG TAB PO SCH (08:29)
[2017-01-17] MEDS: SERTRALINE HCL 50 MG TAB PO SCH (08:30)
[2017-01-17] MEDS: LISINOPRIL 40 MG TAB PO SCH (08:30)
[2017-01-17] MEDS: METOPROLOL SUCC 50MG EXT REL TAB PO SCH (08:30)
[2017-01-17] MEDS: ASPIRIN 81 MG ECTAB PO SCH (08:30)
--- NOTE | 2017-01-17 09:21 | Surgery Progress Note ---
Surgery Progress Note Date of Service Jan 17, 2017. Subjective Looks better than yesterday. Tolerating diet. No complaints. Objective Vital Signs: Date Time Temp Pulse Resp B/P Pulse Ox O2 Delivery O2 Flow Rate FiO2 01/17/17 07:31 36.9 86 17 125/71 91 Room Air 01/17/17 00:09 107/57 95 Nasal Cannula 2.0 01/16/17 23:30 Nasal Cannula 2.0 01/16/17 23:12 36.4 96 20 165/102 90 Room Air 01/16/17 15:45 Room Air 01/16/17 15:04 36.4 91 20 160/79 88 Room Air 01/16/17 11:45 36.7 89 14 110/60 90 Room Air 01/16/17 10:30 91 Nasal Cannula 2.0 Physical Exam: ZOEY drainage (60/10 cc bloody) General Appearance: WD/WN, no apparent distress Head: normocephalic Respiratory/Chest: normal breath sounds, no respiratory distress Cardiovascular: regular rate, rhythm Abdomen: normal bowel sounds, non tender, non distended, soft Incision(s): clean, dry, intact, findings (some leakage still around drain site ) Laboratory Results: Results Past 24 Hours Test 01/16/17 10:07 01/16/17 11:07 Range/Units White Blood Count 12.32 4.8-10.8 K/uL Red Blood Count 3.72 4.7-6.1 M/uL Hemoglobin 11.8 14.0-18.0 g/dL Hematocrit 35.3 42-52 % Mean Corpuscular Volume 94.9 80-100 fL Mean Corpuscular Hemoglobin 31.7 25-34 pg Mean Corpuscular Hemoglobin Concent 33.4 32-36 g/dl Platelet Count 260 130-400 K/uL Mean Platelet Volume 8.9 7.4-10.4 fL Neutrophils (%) (Auto) 74.7 % Lymphocytes (%) (Auto) 9.5 % Monocytes (%) (Auto) 11.9 % Eosinophils (%) (Auto) 0.5 % Basophils (%) (Auto) 0.2 % Neutrophils # (Auto) 9.20 1.4-6.5 K/uL Lymphocytes # (Auto) 1.17 1.2-3.4 K/uL Monocytes # (Auto) 1.47 0.11-0.59 K/uL Eosinophils # (Auto) 0.06 0-0.5 K/uL Basophils # (Auto) 0.03 0-0.2 K/uL RDW Standard Deviation 43.6 36.4-46.3 fL RDW Coefficient of Variation 12.6 11.5-14.5 % Immature Granulocyte % (Auto) 3.2 % Immature Granulocyte # (Auto) 0.39 0.00-0.02 K/uL Sodium Level 144 136-145 mmol/L Potassium Level 3.5 3.5-5.1 mmol/L Chloride Level 107 98-107 mmol/L Carbon Dioxide Level 28 21-32 mmol/L Anion Gap 9.0 3-11 mmol/L Blood Urea Nitrogen 17 7-18 mg/dl Creatinine 1.00 0.60-1.40 mg/dl Est Creatinine Clear Calc Drug Dose 67.7 ml/min Estimated GFR () 82.0 Estimated GFR (Non- 70.8 BUN/Creatinine Ratio 16.5 10-20 Random Glucose 159 70-99 mg/dl Calcium Level 8.2 8.5-10.1 mg/dl Total Bilirubin 2.0 0.2-1 mg/dl Direct Bilirubin 0.4 0-0.2 mg/dl Aspartate Amino Transf (AST/SGOT) 37 15-37 U/L Alanine Aminotransferase (ALT/SGPT) 15 12-78 U/L Alkaline Phosphatase 74 45-117 U/L Total Protein 6.0 6.4-8.2 gm/dl Albumin 2.5 3.4-5.0 gm/dl Microbiology Results 01/16/17 Urine Culture, Received Pending Assessment & Plan Healing well s/p lap sergei. Would keep drain for now. LFTs stable (bili slightly higher but ast/ alt improved). Stable for discharge from surgical standpoint.
[2017-01-17 11:39] VITALS: BP 125/71; PULSE 86; TEMP 36.9; O2SAT 91
== END 2017-01-17 11:59 | disposition home or self-care (01) | DRG 417 ==
LOC: ENRESERVTM → ENRESERVDT → EDBD 13:44 → C.EDC 13:47 → C.MSW 18:53
PROVIDERS: ADMIT Hospitalist; ATTEND Physician Assistant
PROC: 0FT44ZZ Resection of Gallbladder, Percutaneous Endoscopic Approach (ICD-10-PCS; principal; 2017-01-14 07:30)
DX: K80.00 Calculus of gallbladder with acute cholecystitis without obstruction (principal); J18.9 Pneumonia, unspecified organism; J98.11 Atelectasis; I25.10 Atherosclerotic heart disease of native coronary artery without angina pectoris; I10 Essential (primary) hypertension; E78.00 Pure hypercholesterolemia, unspecified; G20 Parkinson's disease; J45.909 Unspecified asthma, uncomplicated; K21.9 Gastro-esophageal reflux disease without esophagitis; F32.9 Major depressive disorder, single episode, unspecified; E53.8 Deficiency of other specified B group vitamins; G47.30 Sleep apnea, unspecified; Z86.73 Personal history of transient ischemic attack (TIA), and cerebral infarction without residual deficits; Z87.891 Personal history of nicotine dependence; Z79.82 Long term (current) use of aspirin; Z82.49 Family history of ischemic heart disease and other diseases of the circulatory system; Z83.3 Family history of diabetes mellitus

== ENCOUNTER → 2017-01-20 | Outpatient (CLI) | payer BC ==
[~2017-01-20] MED LIST changes: +AMOX875T PO; -CYAN100048 SL; +CYAN100073 PO; +HYDR-5688 PO; +MULT-506 PO
[2017-01-20 18:21] LABS: BASO % 0.2 %; BASO ABS # 0.03 K/uL (0-0.2); COMPLETE YES; EOS % 1.6 %; HEMATOCRIT 33.3 % (42-52); IG% 1.5 %; LYMPH % 10.9 %; LYMPH ABS # 1.72 K/uL (1.2-3.4); MEAN CELL VOLUME 96.2 fL (80-100); MEAN CORPUSCULAR HEMOGLOBIN 32.1 pg (25-34); MEAN CORPUSCULAR HGB CONC 33.3 g/dl (32-36); MEAN PLATELET VOLUME 9.2 fL (7.4-10.4); MONO % 8.6 %; NEUT % 77.2 %; PLATELET COUNT 341 K/uL (130-400); RED BLOOD COUNT 3.46 M/uL (4.7-6.1); WHITE BLOOD COUNT 15.85 K/uL (4.8-10.8)
== END | disposition home or self-care (01) ==
LOC: C.LABMFLN 09:41
PROVIDERS: ATTEND Surgery
DX: K80.00 Calculus of gallbladder with acute cholecystitis without obstruction (principal)

== ENCOUNTER 2017-02-01 10:00 | Emergency (ER) | payer BC ==
[~2017-02-01] VITALS: Ht 177.8 cm; Wt 90.5 kg
[~2017-02-01 10:00] MED LIST changes: -AMOX875T PO; -MULT-506 PO
[2017-02-01 10:09] VITALS: TEMP 36.8; Ht 177.8 cm; Wt 90.5 kg
[2017-02-01] MEDS ORDERED: MULT-506 PO (10:27)
[2017-02-01 10:31] VITALS: O2SAT 97
[2017-02-01 10:38] LABS: BASO % 0.5 %; BASO ABS # 0.04 K/uL (0-0.2); COMPLETE YES; EOS % 0.4 %; HEMATOCRIT 36.3 % (42-52); IG% 0.1 %; LYMPH % 17.4 %; MEAN CELL VOLUME 94.8 fL (80-100); MEAN CORPUSCULAR HEMOGLOBIN 31.3 pg (25-34); MEAN CORPUSCULAR HGB CONC 33.1 g/dl (32-36); MEAN PLATELET VOLUME 8.5 fL (7.4-10.4); MONO % 8.2 %; NEUT % 73.4 %; PLATELET COUNT 454 K/uL (130-400); RED BLOOD COUNT 3.83 M/uL (4.7-6.1); WHITE BLOOD COUNT 8.04 K/uL (4.8-10.8)
[2017-02-01 10:49] LABS: ALT/SGPT 14 U/L (12-78); BLOOD UREA NITROGEN 19 mg/dl (7-18); BUN/CREATININE RATIO 16.2 (10-20); CALCIUM 9.1 mg/dl (8.5-10.1); CARBON DIOXIDE 30 mmol/L (21-32); CHLORIDE 103 mmol/L (98-107); GLUCOSE 111 mg/dl (70-99); INR 1.2 (0.9-1.1); PARTIAL THROMBOPLASTIN RATIO 1.1; POTASSIUM 3.9 mmol/L (3.5-5.1); PROTHROMBIN TIME (PATIENT) 12.7 SECONDS (9.0-12.0); SODIUM 140 mmol/L (136-145)
[2017-02-01 10:53] LABS: ALB/GLOB RATIO 0.7 (0.9-2); ALKALINE PHOSPHATASE 132 U/L (45-117); AST/SGOT 22 U/L (15-37)
--- NOTE | 2017-02-01 11:26 | EMERGENCY ROOM VISIT NOTE ---
History Report prepared by Meg: Miriam Meyer Under the Supervision of: Dr. Neo Zavala D.O. First contact with patient: 10:14 Chief Complaint: RESPIRATORY PROBLEMS Stated Complaint: LOW OXYGEN LEVELS History of Present Illness The patient is an 81 year old male who presents to the Emergency Room with complaints of persistent respiratory problems that began prior to arrival. Per the patient's family member, the patient's pulse ox was reading 74 this morning. She states that when she tried it a second time, the reading wouldn't register. The patient's daughter states that the patient's hands were cold, so she was unsure if that was related to his low pulse ox readings. The patient states that he felt lightheaded and dizzy this morning. He denies any fever, cough, chest pain, nausea, vomiting, abdominal pain, back pain, melena, or hematochezia. The patient notes that he had problems with constipation chronically, noting that he takes Miralax daily, and denies taking any pain medications. He notes that he had a cholecystectomy two weeks ago. The patient reports a normal appetite. He states that he has had increased swelling in his legs. He notes a history of COPD and asthma. Source of History: patient Onset: prior to arrival Position: other (global) Quality: other (respiratory problems) Timing: other (persistent) Associated Symptoms: No abdominal pain, No back pain, No chest pain, No cough, No fevers, No hematochezia, No melena, No nausea, No vomiting Note: Associated Symptoms: constipation, increased swelling in legs, lightheaded, dizzy Review of Systems See HPI for pertinent positives & negatives. A total of 10 systems reviewed and were otherwise negative. Past Medical & Surgical Medical Problems: (1) Asthma (2) Benign Hypertension (3) Brain aneurysm (4) Heart disease (5) HTN (hypertension) (6) Hypertension Nos (7) Migraine (8) Pneumonia of both lower lobes (9) Pure Hypercholesterolem (10) TIA (transient ischemic attack) (11) TIA (transient ischemic attack) (12) Urinary Frequency Surgical Problems: (1) H/O heart artery stent Family History Diabetes mellitus Heart disease Hypertension Social History Smoking Status: Never Smoker Drug Use: none Marital Status: Housing Status: lives with significant other Occupation Status: retired Current/Historical Medications Scheduled Atorvastatin (Lipitor), 80 MG PO QPM Calcium/Vitamin D (Os-Bry 500 Plus D), 1 TAB PO DAILY AT 1200 Carbidopa/Levodopa (Sinemet 25MG/100MG), 2 TAB PO AC Clopidogrel (Plavix), 75 MG PO HS Cyanocobalamin (B12), 1,000 MCG PO DAILY Ezetimibe (Zetia), 10 MG PO QAM Hydrochlorothiazide (Hydrochlorothiazide), 12.5 MG PO QAM Lisinopril (Zestril), 40 MG PO QAM Metoprolol Succ (Toprol Xl) (Toprol-Xl ), 100 MG PO QAM Metoprolol Succ (Toprol Xl) (Toprol-Xl), 50 MG PO QPM Multivitamin (Multivitamin), 1 TAB PO DAILY Polyethylene Glycol 3350 (Miralax), 17 GM PO QPM Ranitidine (Zantac), 150 MG PO BID Sertraline (Zoloft), 50 MG PO QAM Allergies Coded Allergies: Tuberculin Tests (Verified Allergy, Unknown, RASH, 01/10/17) Physical Exam Vital Signs Date Time Temp Pulse Resp B/P Pulse Ox O2 Delivery O2 Flow Rate FiO2 02/01/17 15:00 78 18 165/98 97 Room Air 02/01/17 14:31 74 20 170/81 96 Room Air 02/01/17 14:28 76 02/01/17 13:25 74 18 141/79 96 Room Air 02/01/17 11:37 66 16 124/66 98 Room Air 02/01/17 10:31 97 Room Air 02/01/17 10:21 70 02/01/17 10:20 97 Room Air 02/01/17 10:20 97 Room Air 02/01/17 10:09 36.8 68 18 112/68 97 Room Air Physical Exam GENERAL: Patient is awake, alert, and in no acute distress. Patient is resting comfortably and showing no signs of anxiety EYES: The conjunctivae are clear. The pupils are round and reactive. EARS, NOSE, MOUTH AND THROAT: The nose is without any evidence of any deformity. Mucous membranes are moist tongue is midline NECK: The neck is nontender and supple. RESPIRATORY: Normal respiratory effort is noted there is no evidence of wheezing rhonchi or rales CARDIOVASCULAR: Regular rate and rhythm noted there no murmurs rubs or gallops normal S1 normal S2 GASTROINTESTINAL: The abdomen is soft and nontender. Recent surgical sites noted in right upper quadrant. Mild ecchymosis noted. No erythema or drainage. MUSCULOSKELETAL/EXTREMITIES: There is no evidence of gross deformity full range of motion is noted in the hips and shoulders SKIN: There is no obvious evidence of any rash. There are no petechiae, pallor or cyanosis noted. NEUROLOGIC: Patient is awake alert and oriented x3 strength is symmetric patellar reflexes are 2+ bilaterally Medical Decision & Procedures ER Provider Diagnostic Interpretation: Radiology results as stated below per my review and radiologist interpretation: BILATERAL LOWER EXTREMITY VENOUS DOPPLER HISTORY: Pain. Edema. sent by PCP for clot work up COMPARISON STUDY: None. FINDINGS: There is normal compressibility, flow, and augmentation within the bilateral lower extremity deep venous systems. IMPRESSION: No DVT within the right or left lower extremity. Electronically signed by: Gavin Sadler M.D. 02/01/2017 12:06 PM Dictated Date/Time: 02/01/2017 12:05 PM CHEST ONE VIEW PORTABLE CLINICAL HISTORY: EVALUATE RESPIRATORY DISTRESS. DYSPNEA dyspnea COMPARISON STUDY: 01/14/2017 FINDINGS: Improving basilar atelectatic change. Minimal residual right base. Lungs otherwise appear clear. IMPRESSION: Improved exam. No acute process. Electronically signed by: Gavin Sadler M.D. 02/01/2017 11:28 AM Dictated Date/Time: 02/01/2017 11:[address] ANGIOGRAM OF THE CHEST CLINICAL HISTORY: Dyspnea. Hypoxia. COMPARISON STUDY: Chest x-ray dated 02/01/2017. Abdominal CT dated 01/10/2017. TECHNIQUE: Following the IV administration of 93 cc of Optiray 320, CT angiogram of the chest was performed from the upper abdomen to the thoracic inlet utilizing the pulmonary embolus protocol. Images are reviewed in the axial, sagittal, and coronal planes. 3-D MIPS images are created and assessed. IV contrast was administered without complication. The examination is degraded by motion artifact. CT DOSE: 417.39 mGy.cm FINDINGS: Thyroid: Imaged portions of the thyroid gland are normal in size and attenuation. Thoracic aorta: There is atherosclerotic calcification of the thoracic aorta, which is normal in caliber and demonstrates standard 3-vessel arch anatomy. No dissection is seen. Pulmonary vasculature: The main pulmonary arteries are dilated suggesting pulmonary artery hypertension. There are no filling defects identified in main, lobar, or segmental pulmonary branches to suggest pulmonary embolus. Heart: The heart is enlarged and without pericardial effusion. The coronary arteries are densely calcified. Lungs and pleural spaces: Emphysematous change is observed. There is significant dependent atelectasis. Segmental atelectasis is present in the right middle lobe. No airspace consolidation is seen typical for pneumonia and there is no pleural effusion. The trachea and central airways are clear. There are numerous calcified granulomas. A 5 mm noncalcified pulmonary nodule is seen at the left lung base on image #67. Mediastinum: There is no mediastinal lymphadenopathy. Юлия: Clear. Axillae: There is no axillary lymphadenopathy. Upper abdomen: Partially imaged right renal cysts measure up to 5 cm. Cholecystectomy clips are noted. There is mild central intrahepatic biliary ductal dilatation. There is phlegmonous gas containing inflammatory process seen along the undersurface of liver in the gallbladder fossa. Hepatic cysts measure up to 6 cm. Additional hepatic hypodensities also likely represent cysts but are too small for definitive characterization. A small hiatal hernia is noted. There are nonobstructing right renal calculi. Skeletal structures: The skeletal structures are osteopenic. No lytic or blastic bony lesions are seen. IMPRESSION: 1. There is no evidence of pulmonary embolus in the main, lobar, or segmental pulmonary arteries. 2. Emphysema. 3. Cardiomegaly with evidence of pulmonary artery hypertension. 4. There is no airspace consolidation or pleural effusion. 5. Cholecystectomy clips are noted. There is a phlegmonous inflammatory process containing foci of gas along the undersurface of liver in the gallbladder fossa. The appearance suggests infection/developing abscess given the history of recent cholecystectomy. Clinical correlation will be required. 6. Nonobstructing right renal calculi. 7. There is an indeterminant 6 mm noncalcified pulmonary and nodule the left lung base. Numerous additional calcified granulomas are seen. 8. Additional changes as above. Electronically signed by: Oswaldo Huizar M.D. 02/01/2017 12:52 PM Dictated Date/Time: 02/01/2017 12:41 PM Laboratory Results 02/01/17 10:20 Red Blood Count 3.83, Mean Corpuscular Volume 94.8, Mean Corpuscular Hemoglobin 31.3, Mean Corpuscular Hemoglobin Concent 33.1, Mean Platelet Volume 8.5, Neutrophils (%) (Auto) 73.4, Lymphocytes (%) (Auto) 17.4, Monocytes (%) (Auto) 8.2, Eosinophils (%) (Auto) 0.4, Basophils (%) (Auto) 0.5, Neutrophils # (Auto) 5.90, Lymphocytes # (Auto) 1.40, Monocytes # (Auto) 0.66, Eosinophils # (Auto) 0.03, Basophils # (Auto) 0.04 02/01/17 10:20 Test 02/01/17 10:20 02/01/17 10:33 02/01/17 11:30 White Blood Count 8.04 K/uL (4.8-10.8) Red Blood Count 3.83 M/uL (4.7-6.1) Hemoglobin 12.0 g/dL (14.0-18.0) Hematocrit 36.3 % (42-52) Mean Corpuscular Volume 94.8 fL (80-100) Mean Corpuscular Hemoglobin 31.3 pg (25-34) Mean Corpuscular Hemoglobin Concent 33.1 g/dl (32-36) Platelet Count 454 K/uL (130-400) Mean Platelet Volume 8.5 fL (7.4-10.4) Neutrophils (%) (Auto) 73.4 % Lymphocytes (%) (Auto) 17.4 % Monocytes (%) (Auto) 8.2 % Eosinophils (%) (Auto) 0.4 % Basophils (%) (Auto) 0.5 % Neutrophils # (Auto) 5.90 K/uL (1.4-6.5) Lymphocytes # (Auto) 1.40 K/uL (1.2-3.4) Monocytes # (Auto) 0.66 K/uL (0.11-0.59) Eosinophils # (Auto) 0.03 K/uL (0-0.5) Basophils # (Auto) 0.04 K/uL (0-0.2) RDW Standard Deviation 41.4 fL (36.4-46.3) RDW Coefficient of Variation 12.2 % (11.5-14.5) Immature Granulocyte % (Auto) 0.1 % Immature Granulocyte # (Auto) 0.01 K/uL (0.00-0.02) Prothrombin Time 12.7 SECONDS (9.0-12.0) Prothromb Time International Ratio 1.2 (0.9-1.1) Activated Partial Thromboplast Time 27.8 SECONDS (21.0-31.0) Partial Thromboplastin Ratio 1.1 Anion Gap 7.0 mmol/L (3-11) Est Creatinine Clear Calc Drug Dose 55.6 ml/min Estimated GFR () 65.8 Estimated GFR (Non- 56.8 BUN/Creatinine Ratio 16.2 (10-20) Calcium Level 9.1 mg/dl (8.5-10.1) Total Bilirubin 1.0 mg/dl (0.2-1) Aspartate Amino Transf (AST/SGOT) 22 U/L (15-37) Alanine Aminotransferase (ALT/SGPT) 14 U/L (12-78) Alkaline Phosphatase 132 U/L (45-117) Troponin I < 0.015 ng/ml (0-0.045) Pro-B-Type Natriuretic Peptide 292 pg/ml (0-1800) Total Protein 7.8 gm/dl (6.4-8.2) Albumin 3.2 gm/dl (3.4-5.0) Globulin 4.6 gm/dl (2.5-4.0) Albumin/Globulin Ratio 0.7 (0.9-2) Bedside D-Dimer > 450 ng/mlFEU (0-450) Urine Color DK YELLOW Urine Appearance CLEAR (CLEAR) Urine pH 7.5 (4.5-7.5) Urine Specific [place] 1.020 (1.000-1.030) Urine Protein NEG (NEG) Urine Glucose (UA) NEG (NEG) Urine Ketones TRACE (NEG) Urine Occult Blood NEG (NEG) Urine Nitrite NEG (NEG) Urine Bilirubin NEG (NEG) Urine Urobilinogen NEG (NEG) Urine Leukocyte Esterase TRACE (NEG) Urine WBC (Auto) 1-5 /hpf (0-5) Urine RBC (Auto) 0-4 /hpf (0-4) Urine Hyaline Casts (Auto) 1-5 /lpf (0-5) Urine Epithelial Cells (Auto) 10-20 /lpf (0-5) Urine Bacteria (Auto) NEG (NEG) Laboratory results per my review. Medications Administered Medications (Trade) Dose Ordered Sig/Jared Route Start Time Stop Time Status Last Admin Dose Admin Sodium Chloride (Nss 500ml) 500 ml @ 999 mls/hr Q31M STAT IV 02/01/17 12:22 02/01/17 12:52 DC 02/01/17 12:22 999 MLS/HR ECG Indication: SOB/dyspnea Rate (beats per minute): 68 Rhythm: normal sinus Findings: no ectopy, other (no acute ST segment abnormalities) Comparison ECG Date: 01/10/17 Change: no significant change ED Course 1018: The patient was evaluated in room A10. A complete history and physical examination were performed. 1222: Ordered Sodium Chloride 500 ml @ 999 mls/hr IV. 1409: I discussed the patients case with Blank Horan General Surgery LAILA. They are going to come see the patient. 1510: Dr. Casillas, General Surgery evaluated the patient. The patient is ready to go home. He verbalized complete understanding and agreement with the treatment plan. Medical Decision Differential diagnosis: Etiologies such as infections, reactive airway disease, pneumonia, pneumothorax , COPD, CHF, cardiac ischemia, pulmonary embolism, musculoskeletal, gastrointestinal, as well as others were entertained. Nursing notes reviewed. Additional history is obtained from the patient's significant other. The patient is an 81-year-old male who presented to the emergency department for an evaluation of low oxygen levels. The patient recently had surgery for gangrenous cholecystitis. The patient denies having any abdominal pain or fever but his checked his pulse ox with a home pulse oximeter and the saturation was in the seventies. The patient's hands were very cold according to his significant other. I'm unsure if the the primary care physician was called by the significant other she was told to bring the patient to the emergency department for an evaluation of possible pulmonary embolism because the patient' s post operative state. I discussed the patient's laboratory radiographic studies with him. I also discussed his case with his primary general surgeon who evaluated the patient in the emergency department. I do not feel that the CT findings represent infection. I discussed the findings with the patient as well as his significant other. He was encouraged to rest and avoid any strenuous activity. He was also encouraged to continue all medications as prescribed. He was also encouraged to follow-up with his primary care physician as soon as possible or return to the emergency department if symptoms change worsen or the need arises. Consults Time Called: 1342 Consulting Physician: Blank Horan General Surgery LAILA Returned Call: [phone] I discussed the patients case with Blank Horan, General Surgery LAILA. They are going to come see the patient. Impression Primary Impression: Dizziness Additional Impression: Constipation Scribe Attestation The scribe's documentation has been prepared under my direction and personally reviewed by me in its entirety. I confirm that the note above accurately reflects all work, treatment, procedures, and medical decision making performed by me. Departure Information Dispostion Home / Self-Care Referrals Oswaldo Ware M.D. (PCP) Forms HOME CARE DOCUMENTATION FORM, IMPORTANT VISIT INFORMATION, WORK / SCHOOL INSTRUCTIONS Patient Instructions ED Dyspnea Shortness of Breath, My [facility] Additional Instructions Follow-up with your family this week for reevaluation. Follow-up with your general surgeon as scheduled. Rest and avoid any strenuous activity. Return to the emergency department if symptoms change worsen or if the need arises. Problem Qualifiers Additional Impression: Constipation Constipation type: unspecified constipation type Qualified Codes: K59.00 - Constipation, unspecified
--- NOTE | 2017-02-01 11:30 | DIAGNOSTIC IMAGING REPORT ---
CHEST ONE VIEW PORTABLE CLINICAL HISTORY: EVALUATE RESPIRATORY DISTRESS. DYSPNEA dyspnea COMPARISON STUDY: 01/14/2017 FINDINGS: Improving basilar atelectatic change. Minimal residual right base. Lungs otherwise appear clear. IMPRESSION: Improved exam. No acute process. Electronically signed by: Gavin Sadler M.D. 02/01/2017 11:28 AM Dictated Date/Time: 02/01/2017 11:28 AM
[2017-02-01 11:59] LABS: URINE APPEARANCE CLEAR (CLEAR); URINE BILIRUBIN NEG (NEG); URINE COLOR DK YELLOW; URINE NITRITE NEG (NEG); URINE PH 7.5 (4.5-7.5); UROBILINOGEN NEG (NEG)
[2017-02-01 12:00] LABS: MANUAL MICROSCOPIC REQUIRED? NO; REVIEW REQ? NO
--- NOTE | 2017-02-01 12:07 | DIAGNOSTIC IMAGING REPORT ---
BILATERAL LOWER EXTREMITY VENOUS DOPPLER HISTORY: Pain. Edema. sent by PCP for clot work up COMPARISON STUDY: None. FINDINGS: There is normal compressibility, flow, and augmentation within the bilateral lower extremity deep venous systems. IMPRESSION: No DVT within the right or left lower extremity. Electronically signed by: Gavin Sadler M.D. 02/01/2017 12:06 PM Dictated Date/Time: 02/01/2017 12:05 PM
[2017-02-01] MEDS ORDERED: SODIUM CHLORIDE 0.9% 500ML 500 ML IV STA (12:22)
[2017-02-01] MEDS ORDERED: OPTIRAY 320 IV PRN (12:30)
--- NOTE | 2017-02-01 12:53 | DIAGNOSTIC IMAGING REPORT ---
CT ANGIOGRAM OF THE CHEST CLINICAL HISTORY: Dyspnea. Hypoxia. COMPARISON STUDY: Chest x-ray dated 02/01/2017. Abdominal CT dated 01/10/2017. TECHNIQUE: Following the IV administration of 93 cc of Optiray 320, CT angiogram of the chest was performed from the upper abdomen to the thoracic inlet utilizing the pulmonary embolus protocol. Images are reviewed in the axial, sagittal, and coronal planes. 3-D MIPS images are created and assessed. IV contrast was administered without complication. The examination is degraded by motion artifact. CT DOSE: 417.39 mGy.cm FINDINGS: Thyroid: Imaged portions of the thyroid gland are normal in size and attenuation. Thoracic aorta: There is atherosclerotic calcification of the thoracic aorta, which is normal in caliber and demonstrates standard 3-vessel arch anatomy. No dissection is seen. Pulmonary vasculature: The main pulmonary arteries are dilated suggesting pulmonary artery hypertension. There are no filling defects identified in main, lobar, or segmental pulmonary branches to suggest pulmonary embolus. Heart: The heart is enlarged and without pericardial effusion. The coronary arteries are densely calcified. Lungs and pleural spaces: Emphysematous change is observed. There is significant dependent atelectasis. Segmental atelectasis is present in the right middle lobe. No airspace consolidation is seen typical for pneumonia and there is no pleural effusion. The trachea and central airways are clear. There are numerous calcified granulomas. A 5 mm noncalcified pulmonary nodule is seen at the left lung base on image #67. Mediastinum: There is no mediastinal lymphadenopathy. Юлия: Clear. Axillae: There is no axillary lymphadenopathy. Upper abdomen: Partially imaged right renal cysts measure up to 5 cm. Cholecystectomy clips are noted. There is mild central intrahepatic biliary ductal dilatation. There is phlegmonous gas containing inflammatory process seen along the undersurface of liver in the gallbladder fossa. Hepatic cysts measure up to 6 cm. Additional hepatic hypodensities also likely represent cysts but are too small for definitive characterization. A small hiatal hernia is noted. There are nonobstructing right renal calculi. Skeletal structures: The skeletal structures are osteopenic. No lytic or blastic bony lesions are seen. IMPRESSION: 1. There is no evidence of pulmonary embolus in the main, lobar, or segmental pulmonary arteries. 2. Emphysema. 3. Cardiomegaly with evidence of pulmonary artery hypertension. 4. There is no airspace consolidation or pleural effusion. 5. Cholecystectomy clips are noted. There is a phlegmonous inflammatory process containing foci of gas along the undersurface of liver in the gallbladder fossa. The appearance suggests infection/developing abscess given the history of recent cholecystectomy. Clinical correlation will be required. 6. Nonobstructing right renal calculi. 7. There is an indeterminant 6 mm noncalcified pulmonary and nodule the left lung base. Numerous additional calcified granulomas are seen. 8. Additional changes as above. Electronically signed by: Oswaldo Huizar M.D. 02/01/2017 12:52 PM Dictated Date/Time: 02/01/2017 12:41 PM
[2017-02-01 15:00] VITALS: BP 165/98; PULSE 78; O2SAT 97
== END 2017-02-01 15:24 | disposition home or self-care (01) ==
LOC: C.EDB 10:01 → C.EDA 15:24
DX: R42 Dizziness and giddiness (principal); K59.00 Constipation, unspecified; J45.909 Unspecified asthma, uncomplicated; I10 Essential (primary) hypertension; I51.9 Heart disease, unspecified; E78.00 Pure hypercholesterolemia, unspecified; Z86.73 Personal history of transient ischemic attack (TIA), and cerebral infarction without residual deficits; M79.605 Pain in left leg; M79.604 Pain in right leg; R60.0 Localized edema

== ENCOUNTER → 2017-05-03 | Outpatient (CLI) | payer BC ==
[~2017-05-03] MED LIST changes: -HYDR-5688 PO; +METO100T44 PO; -METO1TAB69 PO; +MULT-506 PO
[2017-05-03 13:33] LABS: ALT/SGPT 23 U/L (12-78); AST/SGOT 16 U/L (15-37); BLOOD UREA NITROGEN 20 mg/dl (7-18); BUN/CREATININE RATIO 18.5 (10-20); CALCIUM 8.6 mg/dl (8.5-10.1); CARBON DIOXIDE 30 mmol/L (21-32); CHLORIDE 106 mmol/L (98-107); GLUCOSE 95 mg/dl (70-99); POTASSIUM 3.7 mmol/L (3.5-5.1); SODIUM 142 mmol/L (136-145)
[2017-05-03 13:36] LABS: CHOLESTEROL 128 mg/dl (0-200); CHOLESTEROL/HDL RATIO 2.6; HDL CHOLESTEROL 49 mg/dl; LDL CHOLESTEROL CALCULATED 69 mg/dl; TRIGLYCERIDES 50 mg/dl (0-150); VERY LOW DENSITY LIPOPROT CALC 10 mg/dl
== END | disposition home or self-care (01) ==
LOC: C.LABMFLN 08:18
PROVIDERS: ATTEND Family Medicine
DX: I10 Essential (primary) hypertension (principal); E78.00 Pure hypercholesterolemia, unspecified

== ENCOUNTER → 2017-06-01 | Outpatient (CLI) | payer BC ==
[~2017-06-01] MED LIST changes: -METO100T44 PO; +METO1TAB69 PO
[2017-06-01 18:19] LABS: BASO % 0.4 %; BASO ABS # 0.03 K/uL (0-0.2); COMPLETE YES; EOS % 0.6 %; HEMATOCRIT 41.4 % (42-52); IG% 0.2 %; LYMPH % 23.8 %; LYMPH ABS # 2.02 K/uL (1.2-3.4); MEAN CELL VOLUME 93.7 fL (80-100); MEAN CORPUSCULAR HEMOGLOBIN 30.8 pg (25-34); MEAN CORPUSCULAR HGB CONC 32.9 g/dl (32-36); MEAN PLATELET VOLUME 9.2 fL (7.4-10.4); PLATELET COUNT 226 K/uL (130-400); RED BLOOD COUNT 4.42 M/uL (4.7-6.1)
[2017-06-01 18:41] LABS: THYROID STIMULATING HORMONE 2.71 uIu/ml (0.300-4.500)
--- NOTE | 2017-06-07 12:20 | CODING QUERY MEDICAL NECESSITY ---
SUPPORTING DIAGNOSIS NEEDED A supporting diagnosis is required for the test/procedure performed on this patient in order for us to be reimbursed by the patient's insurance. Please provide a supporting diagnosis for the following test/procedure listed below next to the test name along with your signature. *If there is no additional diagnosis for this patient that would support the following test/procedure please document that below next to the test/procedure. Test(s)/Procedure(s) that require a supporting diagnosis: * FOLIC ACID DIAGNOSIS: Provider Signature: Date: Thank you Blank [place] [facility] [employer] [facility] Once completed, please kindly fax back to [phone] For questions please call [phone]
== END | disposition home or self-care (01) ==
LOC: C.LABMFLN 15:40
PROVIDERS: ATTEND Family Medicine
DX: R53.82 Chronic fatigue, unspecified (principal); D64.9 Anemia, unspecified

== ENCOUNTER → 2017-08-03 | Outpatient (CLI) | payer BC ==
[~2017-08-03] MED LIST changes: +OPTIRAY 320 IV PRN
--- NOTE | 2017-08-03 14:55 | DIAGNOSTIC IMAGING REPORT ---
CHEST CT WITH CONTRAST CT DOSE: 429.87 mGycm HISTORY: R91.1 Lung nodule TECHNIQUE: Multiaxial CT images of the chest were performed following the intravenous administration of contrast. A dose lowering technique was utilized adhering to the principles of ALARA. COMPARISON: Chest CTA 02/01/2017. FINDINGS: Normal caliber thoracic aorta. The central pulmonary arteries are patent. The heart remains borderline enlarged. No pleural or pericardial effusions. No mediastinal or hilar lymphadenopathy. Partially visualized right renal cysts are again noted. The visualized adrenal glands and spleen are unremarkable. No change in the calcifications and cysts within the liver. No suspicious lytic or blastic osseous lesions. Old, healed bilateral rib fractures. No pneumothorax. Old, healed mid sternal fracture. The central airways are patent. Stable 6 mm indeterminate pulmonary nodule within the left lower lobe on image 200. Stable 8 mm nodular density along the left major fissure on image 191. Stable 5 mm nodule within the left lower lobe on image 187. Stable 4 mm nodule within the left lower lobe on image 155. Stable right perihilar 8 mm nodule/lymph node within the right lower lobe abutting the right major fissure on image 150. Calcified granulomas within the base of the right lower lobe remain stable and are likely benign. Groundglass densities at the lung bases favor mild dependent change. No new nodules identified. IMPRESSION: No change in size of the multiple indeterminate pulmonary nodules as described above. Dominant nodule measures 8 mm. No new pulmonary nodules. Please refer to the chart below for recommended follow-up. Please refer to below summary of Fleischner criteria recommendations for follow-up of incidental CT nodules (Ivis Paredes, Guidelines for management of small pulmonary nodules detected on CT scans: A statement from the Fleischner Society, Radiology 237: [phone].) SOLID NODULES Solitary nodule size: <6 mm * Low risk patients: no follow-up needed * high risk patients: optional CT at 12 months Solitary nodule size: 6-8 mm * Low risk patients: follow-up at 6-12 months, then consider further follow-up at 18-24 months * high risk patients: initial follow-up CT at 6-12 months and then at 18-24 months if no change Solitary nodule size: >8 mm * either low or high risk patients - consider follow-up CT at 3 months, and/or CT-PET, and/or biopsy Multiple nodules size: <6 mm * Low risk patients: no routine follow-up * high risk patients: optional CT at 12 months Multiple nodules size: 6-8 mm * Low risk patients: follow-up at 3-6 months, then consider further follow-up at 18-24 months * high risk patients: follow-up at 3-6 months, then at 18-24 months if no change Multiple nodules size: >8 mm * Low risk patients: follow-up at 3-6 months, then consider further follow-up at 18-24 months * high risk patients: follow-up at 3-6 months, then at 18-24 months if no change Note: newly detected indeterminate nodule in persons 35 years of age or older. * Low risk patients: minimal or absent history of smoking and/or other known risk factors * high risk patients: history of smoking or of other known risk factors (e.g. first degree relative with lung cancer, or exposure to asbestos, radon, uranium) * if a nodule up to 8 mm is partly solid or is ground glass further follow-up is required after 24 months to exclude possible slow growing adenocarcinoma (KEVIN) SUBSOLID NODULES Solitary pure ground-glass nodule * nodule size <6 mm - no CT follow-up required * nodule size >=6 mm - follow-up CT at 6-12 months, then every 2 years until 5 years Solitary part-solid nodule * nodule size <6 mm - no CT follow-up required * nodule size >=6 mm - follow-up CT at 3-6 months. If unchanged, and solid component remains <6 mm, then annual follow-up for 5 years Multiple subsolid nodules * nodule size <6 mm - follow-up CT at 3-6 months, consider further follow-up at 2 and 4 years if stable * nodule size >=6 mm - follow-up CT at 3-6 months, subsequent management based on the most suspicious nodule(s) Electronically signed by: Denys Mc M.D. 08/03/2017 2:54 PM Dictated Date/Time: 08/03/2017 2:42 PM
== END | disposition home or self-care (01) ==
LOC: C.CTS 14:11
PROVIDERS: ATTEND Family Medicine
DX: R91.1 Solitary pulmonary nodule (principal)

== ENCOUNTER → 2017-11-03 | Outpatient (CLI) | payer BC ==
[~2017-11-03] MED LIST changes: +METO100T44 PO; -METO1TAB69 PO; -OPTIRAY 320 IV PRN
[2017-11-03 12:09] LABS: BASO % 0.5 %; BASO ABS # 0.03 K/uL (0-0.2); COMPLETE YES; EOS % 2.6 %; HEMATOCRIT 40.9 % (42-52); IG% 0.5 %; LYMPH % 29.8 %; LYMPH ABS # 1.81 K/uL (1.2-3.4); MEAN CORPUSCULAR HEMOGLOBIN 32.2 pg (25-34); MEAN CORPUSCULAR HGB CONC 33.5 g/dl (32-36); MEAN PLATELET VOLUME 8.8 fL (7.4-10.4); MONO % 10.9 %; NEUT % 55.7 %; PLATELET COUNT 252 K/uL (130-400); RED BLOOD COUNT 4.26 M/uL (4.7-6.1); WHITE BLOOD COUNT 6.07 K/uL (4.8-10.8)
[2017-11-03 12:23] LABS: ALT/SGPT 13 U/L (12-78); AST/SGOT 20 U/L (15-37); BLOOD UREA NITROGEN 26 mg/dl (7-18); BUN/CREATININE RATIO 22.2 (10-20); CALCIUM 8.5 mg/dl (8.5-10.1); CARBON DIOXIDE 30 mmol/L (21-32); CHLORIDE 102 mmol/L (98-107); CHOLESTEROL 133 mg/dl (0-200); CREATININE 1.18 mg/dl (0.60-1.40); GLUCOSE 99 mg/dl (70-99); MAGNESIUM 2.2 mg/dl (1.8-2.4); POTASSIUM 3.7 mmol/L (3.5-5.1); SODIUM 137 mmol/L (136-145); TRIGLYCERIDES 55 mg/dl (0-150); VERY LOW DENSITY LIPOPROT CALC 11 mg/dl
[2017-11-03 12:26] LABS: ALKALINE PHOSPHATASE 77 U/L (45-117); CHOLESTEROL/HDL RATIO 2.7; HDL CHOLESTEROL 49 mg/dl; LDL CHOLESTEROL CALCULATED 73 mg/dl
== END | disposition home or self-care (01) ==
LOC: C.LABMFLN 10:02
PROVIDERS: ATTEND Family Medicine
DX: I16.1 Hypertensive emergency (principal); I25.10 Atherosclerotic heart disease of native coronary artery without angina pectoris; R41.3 Other amnesia; E53.8 Deficiency of other specified B group vitamins; I10 Essential (primary) hypertension; E78.00 Pure hypercholesterolemia, unspecified